=== PATIENT | female | born 1970 | race Caucasian/White ===

== ENCOUNTER 2018-11-06 06:10 | Inpatient (IN) | payer OTHER ==
[2018-11-06] MEDS ORDERED: ONDANSETRON HCL INJ/PF 4 MG/2 ML SDV IV ONE ×2 (06:47→08:54)
[2018-11-06] MEDS ORDERED: PANTOPRAZOLE SODIUM 40 MG VIAL IV PRN (06:47)
[2018-11-06] MEDS ORDERED: PANTOPRAZOLE SODIUM 40 MG VIAL IV ONE (06:47)
[2018-11-06 08:42] LABS: INTERNATIONAL RATION (INR) 0.84
[2018-11-06 08:43] LABS: PARTIAL THROMBOPLASTIN TIME 23.9 SEC (23.5-35.8)
[2018-11-06 08:49] LABS: ABSOLUTE BASOPHILS # (AUTO) 0.1 10^3/uL (0.0-0.2); ABSOLUTE EOSINOPHILS # (AUTO) 0.1 10^3/uL (0.0-0.6); ABSOLUTE MONOCYTES (AUTO) 0.4 10^3/uL (0.1-1.4); ABSOLUTE NEUT (AUTO) 11.2 10^3/uL (1.7-8.2); BASOPHILS % (AUTO) 0.6 % (0-2); EOSINOPHILS % (AUTO) 0.7 % (0-6); HEMATOCRIT 39.2 % (36.0-47.0); HEMOGLOBIN 12.7 g/dL (12.0-15.5); MEAN CORPUSCULAR HEMOGLOBIN 26.9 pg (27.0-33.4); MEAN CORPUSCULAR HGB CONC 32.5 g/dL (32.0-36.0); MEAN CORPUSCULAR VOLUME 83 fl (80-97); MONOCYTES % (AUTO) 3.4 % (3-13); PLATELET COUNT 278 10^3/uL (150-450); RED BLOOD COUNT 4.74 10^6/uL (3.72-5.28); RED CELL DISTRIBUTION WIDTH 14.1 % (11.5-14.0); SEGMENTED NEUTROPHILS % (AUTO) 87.3 % (42-78); TOTAL CELLS COUNTED % (AUTO) 100 %; WHITE BLOOD COUNT 12.8 10^3/uL (4.0-10.5)
[2018-11-06 08:51] LABS: ALANINE AMINOTRANSFERASE 18 U/L (9-52); ALBUMIN 3.6 g/dL (3.5-5.0); ALKALINE PHOSPHATASE 144 U/L (38-126); ANION GAP 10 (5-19); ASPARTATE AMINO TRANSFERASE 16 U/L (14-36); BILIRUBIN,DIRECT 0.3 mg/dL (0.0-0.4); BILIRUBIN,TOTAL 0.5 mg/dL (0.2-1.3); BLOOD UREA NITROGEN 22 mg/dL (7-20); CALCIUM 9.6 mg/dL (8.4-10.2); CARBON DIOXIDE 23 mmol/L (22-30); CHLORIDE 101 mmol/L (98-107); POTASSIUM 4.8 mmol/L (3.6-5.0); SODIUM 133.8 mmol/L (137-145); TOTAL PROTEIN 6.9 g/dL (6.3-8.2)
[2018-11-06 08:58] LABS: ALCOHOL < 10 mg/dL (NONE DETECTED)
[2018-11-06 08:59] LABS: GLUCOSE 549 mg/dL (75-110)
[2018-11-06 11:16] LABS: APPEARANCE,URINE CLOUDY; BILIRUBIN,URINE NEGATIVE (NEGATIVE); COLOR,URINE STRAW; GLUCOSE, URINE >=500 mg/dL (NEGATIVE); KETONES,URINE NEGATIVE (NEGATIVE); LEUKOCYTE ESTERASE,URINE SMALL (NEGATIVE); NITRITE,URINE NEGATIVE (NEGATIVE); PROTEIN,URINE 100 mg/dL (NEGATIVE); URINE SPECIFIC GRAVITY 1.013; UROBILINOGEN,URINE NEGATIVE mg/dL (<2.0)
--- NOTE | 2018-11-06 13:42 | ER Document Report ---
Entered by FADI EL SCRIBE 11/06/18 0644 Acting as scribe for:ISIDRO BARRY DO ED GI/ - General Stated Complaint: POSSIBLE GI BLEED Time Seen by Provider: 11/06/18 06:19 Mode of Arrival: Medic Information source: Patient, Emergency Med Personnel Notes: 48-year-old female who presents to the emergency department today for complaints of vomiting. EMS states that when they arrived on scene the patient was in a bathtub covered in brown/black coffee ground colored emesis. EMS reports that the patient had several episodes of vasovagal syncope while vomiting during the drive to this facility. Patient reports that her vomit was initially a tack maker red color and then transitioned to the current coffee ground appearance. Patient denies EtOH or NSAID or aspirin usage. Patient denies any abdominal pain or bloody/dark stool. EMS reports that the patient is non-compliant with her hype rtension and diabetes medications. - Related Data Allergies/Adverse Reactions: acetaminophen [From Vicodin] Allergy (Verified 11/06/18 06:21) alcohol Allergy (Verified 11/06/18 06:21) azithromycin [From Zithromax] Allergy (Verified 11/06/18 06:21) erythromycin base [From E-Mycin] Allergy (Verified 11/06/18 06:21) eucalyptus Allergy (Verified 11/06/18 06:21) hydrocodone [From Vicodin] Allergy (Verified 11/06/18 06:21) meloxicam Allergy (Verified 11/06/18 06:21) menthol Allergy (Verified 11/06/18 06:21) Penicillins Allergy (Verified 11/06/18 06:21) Sulfa (Sulfonamide Antibiotics) Allergy (Verified 11/06/18 06:21) Past Medical History - General Information source: Patient - paperwork brought with patient - Social History Smoking Status: Current Every Day Smoker Cigarette use (# per day): No - Vape Chew tobacco use (# tins/day): No Frequency of alcohol use: None Drug Abuse: None Lives with: Spouse/Significant other Family History: Reviewed & Not Pertinent - Past Medical History Cardiac Medical History: Reports: Hx Hypertension Neurological Medical History: Reports: Hx Migraine, Other - Parkinson's Endocrine Medical History: Reports: Hx Diabetes Mellitus Type 2 - w/ neuropathy Renal/ Medical History: Reports: Other - Stage II Disease Psychiatric Medical History: Reports: Hx Anxiety, Hx Post Traumatic Stress Disorder Review of Systems - Review of Systems Constitutional: No symptoms reported EENT: No symptoms reported Cardiovascular: No symptoms reported Respiratory: No symptoms reported Gastrointestinal: See HPI, Vomiting, Blood in vomit. denies: Abdominal pain, Black stools, Rectal bleeding Genitourinary: No symptoms reported Female Genitourinary: No symptoms reported Musculoskeletal: No symptoms reported Skin: No symptoms reported Hematologic/Lymphatic: No symptoms reported Neurological/Psychological: No symptoms reported -: Yes All other systems reviewed and negative Physical Exam - Vital signs Vitals: Resp Pulse Ox 19 96 11/06/18 06:16 11/06/18 06:16 - Notes Notes: PHYSICAL EXAM - Pulse oximeter at bedside shows a saturation of 98% with good waveform on room air, no hypoxia per my interpretation. - Bedside traffic monitor specialist interpretation #1: Normal sinus rhythm with a rate of 81 per my interpretation. - Bedside traffic monitor specialist interpretation #2: Heart rate bradys down w/ a 3rd degree heart block during emesis, normalizes after vomiting stops per my interpretation. GENERAL: Initially the patient's eyes are closed and she does not answer questions. There is coffee-ground emesis on her chin, clothes, and in an emesis bag at bedside. After 1-2 minutes the patient becomes alert and is able to answer questions appropriately having to stop intermittently to vomit. Patient appears generally weak. Obese. Hypertensive. HEAD: Normocephalic, atraumatic. EYES: Pupils equal, round, and reactive to light. Extraocular movements intact. ENT: Oral mucosa moist, tongue midline. NECK: Full range of motion. Supple. Trachea midline. LUNGS: Clear to auscultation bilaterally, no wheezes, rales, or rhonchi. No respiratory distress. HEART: Regular rate and rhythm. No murmurs, gallops, or rubs. ABDOMEN: Soft, epigastric tenderness with palpation. Non-distended. Bowel sounds present in all 4 quadrants. No guarding, rigidity, or rebound. EXTREMITIES: Moves all 4 extremities spontaneously. No edema, radial and dorsalis pedis pulses 2/4 bilaterally. No cyanosis. NEUROLOGICAL: Initially the patient's eyes are closed and she does not answer questions. After x1-2 minutes the patient becomes alert and oriented x3. Normal speech. PSYCH: Normal affect, normal mood. SKIN: Warm, dry, normal turgor. Coffee-ground emesis on chin and around mouth. Course - Re-evaluation Re-evalutation: 11/06/18 13:40 CBC shows mild leukocytosis with a white count of 12.8, hemoglobin 12.7, coags normal, sodium slightly low 133.8, BUN and creatinine are both elevated at 22 and 1.61 respectively, I have no old ones to compare this to, glucose elevated at 549, later lowered to 440, lipase normal, urinalysis shows glucose and small leukocyte esterase. Alcohol is less than 10. Patient has been given a Protonix bolus and drip. Patient has not had any coffee-ground emesis for the past 4 to 5 hours. Last witnessed emesis was between 730 and 8 AM this morning. No indication for blood at this time. No evidence of esophageal varices in physical examination or history. I do not know exactly what is causing this GI bleed at this time as she has no history of heavy alcohol use, aspirin use or ibuprofen use. Patient will be admitted to the hospitalist Dr. Johnson 11/06/18 13:41 - Vital Signs Vital signs: Temp Pulse Resp BP Pulse Ox 97.6 F 82 15 169/92 H 97 11/06/18 06:51 11/06/18 06:51 11/06/18 11:00 11/06/18 10:01 11/06/18 11:00 - Laboratory Result Diagrams: 11/06/18 07:50 11/06/18 07:50 Laboratory results interpreted by me: 11/06/18 11/06/18 11/06/18 07:50 07:50 08:00 WBC 12.8 H MCH 26.9 L RDW 14.1 H Seg Neutrophils % 87.3 H Lymphocytes % 8.0 L Absolute Neutrophils 11.2 H Sodium 133.8 L BUN 22 H Creatinine 1.61 H Est GFR ( Amer) 42 L Est GFR (Non-Af Amer) 34 L Glucose 549 H* POC Glucose Alkaline Phosphatase 144 H Urine Protein 100 H Urine Glucose (UA) >=500 H Ur Leukocyte Esterase SMALL H 11/06/18 10:57 WBC MCH RDW Seg Neutrophils % Lymphocytes % Absolute Neutrophils Sodium BUN Creatinine Est GFR ( Amer) Est GFR (Non-Af Amer) Glucose POC Glucose 440 H* Alkaline Phosphatase Urine Protein Urine Glucose (UA) Ur Leukocyte Esterase Discharge - Discharge Clinical Impression: Acute upper GI bleed Hyperglycemia due to type 2 diabetes mellitus Qualifiers: Diabetes mellitus rodent exterminator insulin use: without rodent exterminator use Qualified Code(s): E11.65 - Type 2 diabetes mellitus with hyperglycemia Condition: Fair Disposition: ADMITTED INPATIENT Admitting Provider: Elizabeth (Hospitalist) Unit Admitted: Telemetry I personally performed the services described in the documentation, reviewed and edited the documentation which was dictated to the scribe in my presence, and it accurately records my words and actions.
[2018-11-06] MEDS ORDERED: GLUCAGON,HUMAN RECOMB 1 MG INJ SUBCUT PRN (14:25)
[2018-11-06] MEDS ORDERED: NORMAL SALINE 1000 ML 1,000 ML IV PRN (14:25)
[2018-11-06] MEDS ORDERED: DEXTROSE 40% GEL 15 GM TUBE PO PRN ×4 (14:25→14:32)
[2018-11-06] MEDS ORDERED: DEXTROSE 50%-WATER 25 GM/50 ML DISP.SYRIN IV PRN ×4 (14:25→14:32)
[2018-11-06] MEDS ORDERED: ACETAMINOPHEN 325 MG TABLET PO PRN (14:25)
[2018-11-06] MEDS ORDERED: (PENDING PHARMACY ID) (Hydroxyzine Hcl [Atarax 25 Mg Tablet] 25 MG) PO PRN (14:30)
[2018-11-06] MEDS ORDERED: ALBUTEROL SULFATE HFA (90 MCG/PUFF) 200 PUFF/8.5 GM MDI IH PRN (14:30)
[2018-11-06] MEDS ORDERED: (PENDING PHARMACY ID) (Butalbital/Aspirin/Caffeine [Fiorinal 50-325-40 Mg Capsule] 1 CAP) PO PRN (14:30)
[2018-11-06] MEDS ORDERED: BACITRACIN ZINC OINTMENT 15 GM TP PRN (14:30)
[2018-11-06] MEDS ORDERED: (PENDING PHARMACY ID) (Naloxone Hcl [Narcan] 4 MG) NS PRN (14:30)
[2018-11-06] MEDS ORDERED: CYCLOBENZAPRINE HCL 10 MG TABLET PO PRN (14:30)
[2018-11-06] MEDS ORDERED: GLUCAGON,HUMAN RECOMB 1 MG INJ IM PRN (14:32)
[2018-11-06] MEDS ORDERED: HYDRALAZINE HCL INJ/PF 20 MG/1 ML SDV IV PRN (14:42)
[2018-11-06] MEDS ORDERED: (PENDING PHARMACY ID) (Estradiol [Estrace] 2 MG) PO SCH (14:45)
[2018-11-06] MEDS ORDERED: INSULIN GLARGINE,HUM.REC.ANLOG 1,000 UNIT/10 ML VIAL SUBCUT SCH (14:45)
--- NOTE | 2018-11-06 14:59 | PDOC H&P ---
History of Present Illness Admission Date/PCP: 11/06/18 13:45 Patient complains of: Nausea vomiting's from this morning. History of Present Illness: MIREYA BARRETO is a 48 year old female with history of type 2 diabetes mellitus, obesity, chronic kidney disease, PTSD, depression, OCD, severe depression, neuropathy in both upper and lower extremities brought to the emergency room by EMS with complaints of vomitings associated with coffee-ground emesis. She has multiple syncopal episodes on the way to the emergency room. The work-up in the emergency room revealed hemoglobin of 12.7 WBC of 12.8. By the time of examination nausea vomiting's are subsided. Patient said that usually uses the restroom to 3 times a week and last bowel movement was 2 days ago. denies any diarrhea denies any melena. Patient agreed to stay in the hospital. I called Dr. Alcazar have discussed the plan of care and possible need for endoscopy on nonemergent basis. Past Medical History Cardiac Medical History: Reports: Hypertension Neurological Medical History: Reports: Migraine, Other - Parkinson's Endocrine Medical History: Reports: Diabetes Mellitus Type 2 - w/ neuropathy Renal/ Medical History: Reports: Chronic Kidney Disease, Other - Stage II Di sease Psychiatric Medical History: Reports: Depression, Post Traumatic Stress Disorder Past Surgical History Past Surgical History: Reports: Section, Hysterectomy, Tonsillectomy - & adenoids Social History Lives with: Spouse/Significant other Smoking Status: Current Every Day Smoker Frequency of Alcohol Use: Occasional Hx Recreational Drug Use: No Drugs: None - Advance Directive Resuscitation Status: Full Code Family History Family History: Reviewed & Not Pertinent Parental Family History Reviewed: Yes - Family history of heart disease, diabetes, hypertension. Children Family History Reviewed: Yes Sibling(s) Family History Reviewed.: Yes Medication/Allergy Home Medications: Albuterol Sulfate [Proair Hfa Inhalation Aerosol 8.5 gm Mdi] 2 puff IH ASDIR PRN 11/06/18 Amitriptyline HCl [Elavil 25 mg Tablet] 25 mg PO QHS 11/06/18 Bacitracin Zinc [Bacitracin Oint 15 gm] 1 applic TP BIDP PRN 11/06/18 Butalbital/Aspirin/Caffeine [Fiorinal 50-325-40 mg Capsule] 1 cap PO Q8HP PRN 11/06/18 Citalopram Hydrobromide [Citalopram HBr] 20 mg PO QHS 11/06/18 Clotrimazole/Betamethasone Dip [Lotrisone Cream 15 gm] 1 applic TP ASDIR PRN 11/06/18 Cyclobenzaprine HCl [Flexeril 10 mg Tablet] 10 mg PO Q8HP PRN 11/06/18 Epinephrine [Epipen 2-Charan] 0.3 mg IM ASDIR PRN 11/06/18 Estradiol [Estrace] 2 mg PO DAILY 11/06/18 Famotidine [Pepcid 20 mg Tablet] 20 mg PO BID 11/06/18 Fenofibrate 160 mg PO QHS 11/06/18 Hydroxyzine HCl [Atarax 25 mg Tablet] 25 mg PO Q8HP PRN 11/06/18 Insulin Glargine,Hum.rec.anlog [Basaglar Kwikpen U-100] 60 unit SQ QHS 11/06/18 Insulin Glulisine [Apidra Insulin (Glulisine) 100 unit/mL] 20 unit SUBCUT MEALS 11/06/18 Lisinopril [Prinivil 10 mg Tablet] 20 mg PO DAILY 11/06/18 Loratadine [Claritin 10 mg Tablet] 10 mg PO DAILY 11/06/18 Naloxone HCl [Narcan] 4 mg NS ASDIR PRN 11/06/18 Paroxetine HCl [Paxil] 40 mg PO DAILY 11/06/18 Prochlorperazine Maleate [Compazine 10 mg Tablet] 10 mg PO Q8HP PRN 11/06/18 Topiramate [Topamax] 50 mg PO QHS 11/06/18 Tramadol HCl [Ultram 50 mg Tablet] 50 mg PO Q12HP PRN 11/06/18 Trazodone HCl [Desyrel 50 mg Tablet] 500 mg PO QHS 11/06/18 Allergies/Adverse Reactions: acetaminophen [From Vicodin] Allergy (Verified 11/06/18 06:21) alcohol Allergy (Verified 11/06/18 06:21) azithromycin [From Zithromax] Allergy (Verified 11/06/18 06:21) erythromycin base [From E-Mycin] Allergy (Verified 11/06/18 06:21) eucalyptus Allergy (Verified 11/06/18 06:21) hydrocodone [From Vicodin] Allergy (Verified 11/06/18 06:21) meloxicam Allergy (Verified 11/06/18 06:21) menthol Allergy (Verified 11/06/18 06:21) Penicillins Allergy (Verified 11/06/18 06:21) Sulfa (Sulfonamide Antibiotics) Allergy (Verified 11/06/18 06:21) Review of Systems Constitutional: PRESENT: fatigue, weakness. ABSENT: fever(s), headache(s) Eyes: ABSENT: visual disturbances Ears: ABSENT: hearing changes Nose, Mouth, and Throat: ABSENT: sore throat Cardiovascular: ABSENT: chest pain, dyspnea on exertion, orthropnea, palpitations Respiratory: ABSENT: dyspnea, hemoptysis Gastrointestinal: PRESENT: coffee ground emesis, hematemesis, nausea, vomiting. ABSENT: diarrhea Genitourinary: ABSENT: dysuria, hematuria, nocturia Neurological: PRESENT: dizziness, vertigo Psychiatric: ABSENT: anxiety, depression, homidical ideation, suicidal ideation Physical Exam Vital Signs: Temp Pulse Resp BP Pulse Ox 97.6 F 82 15 169/92 H 97 11/06/18 06:51 11/06/18 06:51 11/06/18 11:00 11/06/18 10:01 11/06/18 11:00 Intake & Output 11/05/18 11/06/18 11/07/18 06:59 06:59 06:59 Weight 88.3 kg General appearance: PRESENT: no acute distress, obese Head exam: PRESENT: atraumatic Eye exam: PRESENT: PERRLA Ear exam: PRESENT: bleeding Mouth exam: PRESENT: moist, tongue midline Neck exam: ABSENT: carotid bruit, JVD, lymphadenopathy, thyromegaly Respiratory exam: PRESENT: clear to auscultation susan. ABSENT: rales, rhonchi, wheezes Cardiovascular exam: PRESENT: bradycardia GI/Abdominal exam: PRESENT: normal bowel sounds, soft. ABSENT: distended, guarding, mass, organolmegaly, rebound, tenderness Extremities exam: PRESENT: full ROM. ABSENT: calf tenderness, clubbing, pedal edema Neurological exam: PRESENT: alert, awake, oriented to person, oriented to place, oriented to time, oriented to situation, CN II-XII grossly intact. ABSENT: motor sensory deficit Psychiatric exam: PRESENT: appropriate affect, normal mood. ABSENT: homicidal ideation, suicidal ideation Results Laboratory Results: 11/06/18 07:50 11/06/18 07:50 11/06/18 11/06/18 11/06/18 07:50 07:50 07:50 WBC 12.8 H RBC 4.74 Hgb 12.7 Hct 39.2 MCV 83 MCH 26.9 L MCHC 32.5 RDW 14.1 H Plt Count 278 Seg Neutrophils % 87.3 H Lymphocytes % 8.0 L Monocytes % 3.4 Eosinophils % 0.7 Basophils % 0.6 Absolute Neutrophils 11.2 H Absolute Lymphocytes 1.0 Absolute Monocytes 0.4 Absolute Eosinophils 0.1 Absolute Basophils 0.1 Sodium 133.8 L Potassium 4.8 Chloride 101 Carbon Dioxide 23 Anion Gap 10 BUN 22 H Creatinine 1.61 H Est GFR ( Amer) 42 L Est GFR (Non-Af Amer) 34 L Glucose 549 H* Calcium 9.6 Total Bilirubin 0.5 AST 16 ALT 18 Alkaline Phosphatase 144 H Total Protein 6.9 Albumin 3.6 Lipase Urine Color Urine Appearance Urine pH Ur Specific Gay Urine Protein Urine Glucose (UA) Urine Ketones Urine Blood Urine Nitrite Ur Leukocyte Esterase Urine WBC (Auto) Urine RBC (Auto) Blood Type O POSITIVE Antibody Screen NEGATIVE 11/06/18 11/06/18 07:50 08:00 WBC RBC Hgb Hct MCV MCH MCHC RDW Plt Count Seg Neutrophils % Lymphocytes % Monocytes % Eosinophils % Basophils % Absolute Neutrophils Absolute Lymphocytes Absolute Monocytes Absolute Eosinophils Absolute Basophils Sodium Potassium Chloride Carbon Dioxide Anion Gap BUN Creatinine Est GFR ( Amer) Est GFR (Non-Af Amer) Glucose Calcium Total Bilirubin AST ALT Alkaline Phosphatase Total Protein Albumin Lipase 166.5 Urine Color STRAW Urine Appearance CLOUDY Urine pH 8.0 Ur Specific Gay 1.013 Urine Protein 100 H Urine Glucose (UA) >=500 H Urine Ketones NEGATIVE Urine Blood NEGATIVE Urine Nitrite NEGATIVE Ur Leukocyte Esterase SMALL H Urine WBC (Auto) 12 Urine RBC (Auto) 3 Blood Type Antibody Screen Assessment and Plan - Diagnosis (1) Acute upper gastrointestinal hemorrhage Is this a current diagnosis for this admission?: Yes Plan: For ,000 [id number] female with multiple medical problems came in with syncopal episodes associated nausea vomiting and coffee colored emesis. Hemogl obin is 12.7 in the ER. Plan to put her in medical floor as inpatient. To keep her n.p.o. except for medications today. Check the CBC again tonight. to Check stool for occult blood. Patient received IV Protonix drip in the ER. to Start him on famotidine 20 mg IV twice a day. Hold the DVT prophylaxis and keep the patient on SCDs. surgical consult with Dr. Alcazar was requested. To repeat the CBC tomorrow morning. If the 50 hemoglobin continued to drop plan to transfuse PRBC. pt is started on normal saline at 50 cc/h. (2) Diabetes Qualifiers: Diabetes mellitus type: type 2 Is this a current diagnosis for this admission?: No Plan: 11/06/2018 patient has history of type 2 diabetes mellitus. Noncompliance of medications at home. On arrival serum glucose is 546. Repeat glucose is 440. Because the patient is n.p.o. to start on low-dose of Lantus 10 units twice a day and start on insulin sliding scale before meals and at bedtime every 6 hours. Hemoglobin A1c was requested. Dietary consult is going to be requested during the hospital stay. (3) HTN (hypertension) Is this a current diagnosis for this admission?: No Plan: 11/06/2018-patient has history of hypertension taking lisinopril at home. To restart lisinopril during the hospital stay and also start IV hydralazine 10 mg every 4 hours as needed to keep the systolic blood pressure less than 150. (4) Obesity (BMI 30.0-34.9) Is this a current diagnosis for this admission?: No Plan: 11/06/2018 patient BMI is around 30. Diet exercise weight loss lifestyle modifications are discussed with the patient. (5) Tobacco abuse Is this a current diagnosis for this admission?: No Plan: 11/06/2018-patient is a chronic smoker smokes close to a pack per day. Looking because it was provided more than 20 minutes. Start on nicotine patch 21 mcg daily. (6) Depression Is this a current diagnosis for this admission?: No Plan: 11/06/2018-patient given the history of depression and any depressive symptoms at the time of admission. Plan to restart her home medications. (7) Hyponatremia Is this a current diagnosis for this admission?: Yes Plan: 11/06/2018-serum sodium is 133.8 today. Blood sugar is 549. Corrected sodium may be close to 140. (8) CKD (chronic kidney disease) Is this a current diagnosis for this admission?: No Plan: 11/06/2018-patient with history of stage II kidney disease. Serum creatinine at the time of admission 1.6. We do not have any previous labs available. Plan to continue to closely follow the kidney function on regular basis. - Time Time Spent with patient: 25-34 minutes Smoking Cessation Education: over 10 minutes Medications reviewed and adjusted accordingly: Yes Anticipated discharge: Home
[2018-11-06] MEDS ORDERED: HYDROXYZINE PAMOATE 25 MG CAPSULE PO PRN (15:08)
[2018-11-06 15:28] LABS: ARTERIAL BLOOD BASE EXCESS -1.3 mmol/L; ARTERIAL BLOOD H2CO3 1.13 mmol/L (1.05-1.35); ARTERIAL BLOOD HCO3 23.1 mmol/L (20-24); ARTERIAL BLOOD O2 SATURATION 95.3 % (94-98); ARTERIAL BLOOD PCO2 37.6 mmHg (35-45); ARTERIAL BLOOD PH 7.41 (7.35-7.45); ARTERIAL BLOOD PO2 75.3 mmHg (80-100); ARTERIAL BLOOD TOTAL CO2 24.2 mmol/L (21-25)
[2018-11-06 15:29] LABS: ABSOLUTE LYMPHOCYTES (AUTO) 0.6 10^3/uL (0.5-4.7); ABSOLUTE MONOCYTES (AUTO) 0.1 10^3/uL (0.1-1.4); ABSOLUTE NEUT (AUTO) 10.5 10^3/uL (1.7-8.2); BASOPHILS % (AUTO) 0.4 % (0-2); HEMATOCRIT 39.7 % (36.0-47.0); LYMPHOCYTES % (AUTO) 5.1 % (13-45); MEAN CORPUSCULAR HEMOGLOBIN 26.9 pg (27.0-33.4); MEAN CORPUSCULAR HGB CONC 32.7 g/dL (32.0-36.0); MEAN CORPUSCULAR VOLUME 82 fl (80-97); MONOCYTES % (AUTO) 1.3 % (3-13); PLATELET COUNT 216 10^3/uL (150-450); RED BLOOD COUNT 4.83 10^6/uL (3.72-5.28); SEGMENTED NEUTROPHILS % (AUTO) 93.2 % (42-78); TOTAL CELLS COUNTED % (AUTO) 100 %; WHITE BLOOD COUNT 11.3 10^3/uL (4.0-10.5)
[2018-11-06 15:36] LABS: ARTERIAL BLOOD FIO2 ROOM AIR
[2018-11-06 15:48] LABS: ALANINE AMINOTRANSFERASE 22 U/L (9-52); ALBUMIN 3.9 g/dL (3.5-5.0); ALKALINE PHOSPHATASE 132 U/L (38-126); ANION GAP 11 (5-19); ASPARTATE AMINO TRANSFERASE 19 U/L (14-36); BILIRUBIN,DIRECT 0.4 mg/dL (0.0-0.4); BILIRUBIN,TOTAL 0.7 mg/dL (0.2-1.3); BLOOD UREA NITROGEN 23 mg/dL (7-20); CALCIUM 9.5 mg/dL (8.4-10.2); CARBON DIOXIDE 24 mmol/L (22-30); CHLORIDE 101 mmol/L (98-107); POTASSIUM 4.6 mmol/L (3.6-5.0); SODIUM 135.5 mmol/L (137-145); TOTAL PROTEIN 7.5 g/dL (6.3-8.2)
[2018-11-06] MEDS: INSULIN LISPRO 100 UNIT/ML 3 ML VIAL SUBCUT SCH ×2 (15:49→17:29)
[2018-11-06 15:55] LABS: CREATINE KINASE MB 1.78 ng/mL (<4.55)
[2018-11-06 16:00] LABS: GLUCOSE 506 mg/dL (75-110)
[2018-11-06] MEDS ORDERED: INSULIN GLARGINE,HUM.REC.ANLOG 1,000 UNIT/10 ML VIAL (PYX) SUBCUT SCH (16:00)
[2018-11-06 16:12] LABS: TROPONIN I < 0.012 ng/mL
[2018-11-06] MEDS: DOCUSATE SODIUM 100 MG CAPSULE PO SCH (17:28)
[2018-11-06] MEDS: ENOXAPARIN SODIUM INJ 40 MG/0.4 ML DISP.SYRIN SUBCUT SCH (17:29)
[2018-11-06] MEDS: LORATADINE 10 MG TABLET PO SCH (17:29)
[2018-11-06] MEDS: LISINOPRIL 10 MG TABLET PO SCH (17:29)
[2018-11-06] MEDS: NICOTINE 14 MG/24 HR PATCH.TD24 TD SCH (17:29)
[2018-11-06] MEDS: FAMOTIDINE INJ/PF 20 MG/2 ML SDV IV SCH (18:03)
[2018-11-06] MEDS: ONDANSETRON HCL INJ/PF 4 MG/2 ML SDV IV PRN (19:41)
--- NOTE | 2018-11-06 21:01 | EKG REPORT ---
SEVERITY:- BORDERLINE ECG - SINUS RHYTHM PROBABLE LEFT ATRIAL ABNORMALITY : Confirmed by: Peg Guevara MD 06-Nov-2018 21:01:05
--- NOTE | 2018-11-06 21:01 | PDOC CONSULTATION ---
Consultation Consult Date: 11/06/18 Consult reason:: Nausea, vomiting, coffee-ground emesis, abdominal pain. History of Present Illness Admission Date/PCP: 11/06/18 13:45 History of Present Illness: MIREYA BARRETO is a 48 year old female seen in consultation at the request of the hospitalist service. The patient reports that she woke up from sleep having excruciating abdominal pain. She has never felt pain like this before. The patient began vomiting. Initially, the vomitus was yellow/green in color. It resembled her previous meal. The patient continued vomiting, at which point it began to look like coffee grounds. The patient reports sharp epigastric abdominal pain that was 6 out of 10. The patient became very dizzy after vomiting and could not get up out of the floor. Patient had to call for assist ance, to transport her to the hospital. The patient denies melena, hematochezia, or diarrhea. Her last bowel movement was 2 days ago, soft, and brown. The patient denies chest pain, shortness of breath, fevers, chills, headache, blurry vision. She does report dizziness, orthostasis, fatigue, and malaise. Nothing makes her symptoms better or worse. The patient denies taking NSAIDs, steroids, using caffeine, drinking soda pop, or drinking alcohol. She does report using nicotine via a vape pen. Past Medical History Cardiac Medical History: Reports: Hypertension Neurological Medical History: Reports: Migraine, Other - Parkinson's Endocrine Medical History: Reports: Diabetes Mellitus Type 2 - w/ neuropathy Renal/ Medical History: Reports: Chronic Kidney Disease, Other - Stage II Disease Psychiatric Medical History: Reports: Depression, Post Traumatic Stress Disorder Past Surgical History Past Surgical History: Reports: Section, Hysterectomy, Tonsillectomy - & adenoids Social History Lives with: Spouse/Significant other Smoking Status: Current Every Day Smoker Number of Years Smokin Last Time Smoked: 07/2016 Frequency of Alcohol Use: Occasional Hx Recreational Drug Use: No Drugs: None Hx Prescription Drug Abuse: No - Advance Directive Resuscitation Status: Full Code Family History Family History: Reviewed & Not Pertinent Parental Family History Reviewed: Yes Children Family History Reviewed: Yes Sibling(s) Family History Reviewed.: Yes Medication/Allergy Home Medications: Albuterol Sulfate [Proair Hfa Inhalation Aerosol 8.5 gm Mdi] 2 puff IH ASDIR PRN 11/06/18 Amitriptyline HCl [Elavil 25 mg Tablet] 25 mg PO QHS 11/06/18 Bacitracin Zinc [Bacitracin Oint 15 gm] 1 applic TP BIDP PRN 11/06/18 Butalb/Acetaminophen/Caffeine [Fioricet (50-325-40 mg) Tablet] 1 tab PO Q8HP PRN 11/06/18 Citalopram Hydrobromide [Citalopram HBr] 20 mg PO QHS 11/06/18 Clotrimazole/Betamethasone Dip [Lotrisone Cream 15 gm] 1 applic TP ASDIR PRN 11/06/18 Cyclobenzaprine HCl [Flexeril 10 mg Tablet] 10 mg PO Q8HP PRN 11/06/18 Epinephrine [Epipen 2-Charan] 0.3 mg IM ASDIR PRN 11/06/18 Estradiol [Estrace] 2 mg PO DAILY 11/06/18 Famotidine [Pepcid 20 mg Tablet] 20 mg PO BID 11/06/18 Fenofibrate 160 mg PO QHS 11/06/18 Hydroxyzine HCl [Atarax 25 mg Tablet] 25 mg PO Q8HP PRN 11/06/18 Insulin Glargine,Hum.rec.anlog [Basaglar Kwikpen U-100] 60 unit SQ QHS 11/06/18 Insulin Glulisine [Apidra Insulin (Glulisine) 100 unit/mL] 20 unit SUBCUT MEALS 11/06/18 Lisinopril [Prinivil 10 mg Tablet] 20 mg PO DAILY 11/06/18 Loratadine [Claritin 10 mg Tablet] 10 mg PO DAILY 11/06/18 Naloxone HCl [Narcan] 4 mg NS ASDIR PRN 11/06/18 Paroxetine HCl [Paxil] 40 mg PO DAILY 11/06/18 Prochlorperazine Maleate [Compazine 10 mg Tablet] 10 mg PO Q8HP PRN 11/06/18 Topiramate [Topamax] 50 mg PO QHS 11/06/18 Tramadol HCl [Ultram 50 mg Tablet] 50 mg PO Q12HP PRN 11/06/18 Trazodone HCl [Desyrel 50 mg Tablet] 500 mg PO QHS 11/06/18 Allergies/Adverse Reactions: acetaminophen [From Vicodin] Allergy (Verified 11/06/18 06:21) alcohol Allergy (Verified 11/06/18 06:21) azithromycin [From Zithromax] Allergy (Verified 11/06/18 06:21) erythromycin base [From E-Mycin] Allergy (Verified 11/06/18 06:21) eucalyptus Allergy (Verified 11/06/18 06:21) hydrocodone [From Vicodin] Allergy (Verified 11/06/18 06:21) meloxicam Allergy (Verified 11/06/18 06:21) menthol Allergy (Verified 11/06/18 06:21) Penicillins Allergy (Verified 11/06/18 06:21) Sulfa (Sulfonamide Antibiotics) Allergy (Verified 11/06/18 06:21) Review of Systems Constitutional: PRESENT: fatigue. ABSENT: chills, fever(s) Eyes: ABSENT: visual disturbances Ears: ABSENT: hearing changes Nose, Mouth, and Throat: ABSENT: sore throat Cardiovascular: ABSENT: chest pain Respiratory: ABSENT: cough, dyspnea Gastrointestinal: PRESENT: abdominal pain, bloating, nausea, vomiting, other - Coffee-ground emesis. ABSENT: hematochezia, melena Genitourinary: ABSENT: dysuria Musculoskeletal: ABSENT: back pain Integumentary: ABSENT: pruritus, rash Neurological: PRESENT: dizziness, frequent falls, syncope, weakness Psychiatric: PRESENT: anxiety, depression Endocrine: ABSENT: cold intolerance, heat intolerance Hematologic/Lymphatic: ABSENT: easy bleeding, easy bruising Physical Exam Vital Signs: Temp Pulse Resp BP Pulse Ox 98.8 F 92 17 142/65 H 97 11/06/18 14:39 11/06/18 14:39 11/06/18 14:39 11/06/18 14:39 11/06/18 14:39 Intake & Output 11/05/18 11/06/18 11/07/18 06:59 06:59 06:59 Weight 88.3 kg 84.85 kg General appearance: PRESENT: no acute distress, cooperative Head exam: PRESENT: atraumatic, normocephalic Eye exam: PRESENT: EOMI, PERRLA. ABSENT: scleral icterus Mouth exam: PRESENT: moist, neck supple Neck exam: ABSENT: meningismus, tenderness, thyromegaly, tracheal deviation Respiratory exam: PRESENT: clear to auscultation susan, unlabored. ABSENT: chest wall tenderness, tachypnea, wheezes Cardiovascular exam: PRESENT: RRR Pulses: PRESENT: normal radial pulses Vascular exam: PRESENT: normal capillary refill. ABSENT: pallor GI/Abdominal exam: PRESENT: soft. ABSENT: distended, firm, guarding, tenderness Rectal exam: PRESENT: deferred Extremities exam: ABSENT: clubbing Musculoskeletal exam: ABSENT: deformity Neurological exam: PRESENT: alert, awake, oriented to person, oriented to place, oriented to time, oriented to situation Psychiatric exam: ABSENT: agitated, anxious, depressed Focused psych exam: ABSENT: delusional Skin exam: ABSENT: cyanosis, erythema, jaundice Results Laboratory Results: 11/06/18 15:00 11/06/18 15:00 11/06/18 11/06/18 11/06/18 07:50 07:50 07:50 WBC 12.8 H RBC 4.74 Hgb 12.7 Hct 39.2 MCV 83 MCH 26.9 L MCHC 32.5 RDW 14.1 H Plt Count 278 Seg Neutrophils % 87.3 H Lymphocytes % 8.0 L Monocytes % 3.4 Eosinophils % 0.7 Basophils % 0.6 Absolute Neutrophils 11.2 H Absolute Lymphocytes 1.0 Absolute Monocytes 0.4 Absolute Eosinophils 0.1 Absolute Basophils 0.1 Carbonic Acid HCO3/H2CO3 Ratio ABG pH ABG pCO2 ABG pO2 ABG HCO3 ABG O2 Saturation ABG Base Excess FiO2 Sodium 133.8 L Potassium 4.8 Chloride 101 Carbon Dioxide 23 Anion Gap 10 BUN 22 H Creatinine 1.61 H Est GFR ( Amer) 42 L Est GFR (Non-Af Amer) 34 L Glucose 549 H* Calcium 9.6 Total Bilirubin 0.5 AST 16 ALT 18 Alkaline Phosphatase 144 H Total Protein 6.9 Albumin 3.6 Lipase Urine Color Urine Appearance Urine pH Ur Specific [place] Urine Protein Urine Glucose (UA) Urine Ketones Urine Blood Urine Nitrite Ur Leukocyte Esterase Urine WBC (Auto) Urine RBC (Auto) Blood Type O POSITIVE Antibody Screen NEGATIVE 11/06/18 11/06/18 11/06/18 07:50 08:00 15:00 WBC 11.3 H RBC 4.83 Hgb 13.0 Hct 39.7 MCV 82 MCH 26.9 L MCHC 32.7 RDW 14.0 Plt Count 216 Seg Neutrophils % 93.2 H Lymphocytes % 5.1 L Monocytes % 1.3 L Eosinophils % 0.0 Basophils % 0.4 Absolute Neutrophils 10.5 H Absolute Lymphocytes 0.6 Absolute Monocytes 0.1 Absolute Eosinophils 0.0 Absolute Basophils 0.0 Carbonic Acid HCO3/H2CO3 Ratio ABG pH ABG pCO2 ABG pO2 ABG HCO3 ABG O2 Saturation ABG Base Excess FiO2 Sodium Potassium Chloride Carbon Dioxide Anion Gap BUN Creatinine Est GFR ( Amer) Est GFR (Non-Af Amer) Glucose Calcium Total Bilirubin AST ALT Alkaline Phosphatase Total Protein Albumin Lipase 166.5 Urine Color STRAW Urine Appearance CLOUDY Urine pH 8.0 Ur Specific [place] 1.013 Urine Protein 100 H Urine Glucose (UA) >=500 H Urine Ketones NEGATIVE Urine Blood NEGATIVE Urine Nitrite NEGATIVE Ur Leukocyte Esterase SMALL H Urine WBC (Auto) 12 Urine RBC (Auto) 3 Blood Type Antibody Screen 11/06/18 11/06/18 15:00 15:15 WBC RBC Hgb Hct MCV MCH MCHC RDW Plt Count Seg Neutrophils % Lymphocytes % Monocytes % Eosinophils % Basophils % Absolute Neutrophils Absolute Lymphocytes Absolute Monocytes Absolute Eosinophils Absolute Basophils Carbonic Acid 1.13 HCO3/H2CO3 Ratio 20:1 ABG pH 7.41 ABG pCO2 37.6 ABG pO2 75.3 L ABG HCO3 23.1 ABG O2 Saturation 95.3 ABG Base Excess -1.3 FiO2 ROOM AIR Sodium 135.5 L Potassium 4.6 Chloride 101 Carbon Dioxide 24 Anion Gap 11 BUN 23 H Creatinine 1.70 H Est GFR ( Amer) 39 L Est GFR (Non-Af Amer) 32 L Glucose 506 H* Calcium 9.5 Total Bilirubin 0.7 AST 19 ALT 22 Alkaline Phosphatase 132 H Total Protein 7.5 Albumin 3.9 Lipase Urine Color Urine Appearance Urine pH Ur Specific [place] Urine Protein Urine Glucose (UA) Urine Ketones Urine Blood Urine Nitrite Ur Leukocyte Esterase Urine WBC (Auto) Urine RBC (Auto) Blood Type Antibody Screen 11/06/18 15:00 CK-MB (CK-2) 1.78 Troponin I < 0.012 Assessment & Plan - Diagnosis (1) Nausea and vomiting Qualifiers: Vomiting type: bilious vomiting Qualified Code(s): R11.14 - Bilious vomiting Is this a current diagnosis for this admission?: Yes (2) Coffee ground emesis Is this a current diagnosis for this admission?: Yes (3) Hyperglycemia Is this a current diagnosis for this admission?: Yes - Plan Summary Plan Summary: This is a 48-year-old female with reports of abdominal pain, nausea, vomiting, syncope, dizziness, and coffee-ground emesis. Surgery has been asked to evaluate the patient. Currently her blood sugars are in the 3-500 range. She is being treated for this with insulin. The patient reports seeing coffee- ground emesis. This, coupled with her epigastric abdominal pain may be indicative of peptic ulcer disease. The patient may benefit from endoscopy. I would prefer that her blood glucose levels are slightly better controlled prior to the procedure. Plan for upper endoscopy once blood sugars are improved. Please note that the patient is not currently having héctor hematemesis. Her hemoglobin is stable. Her vital signs are also stable. The patient also has an elevated alkaline phosphatase. I will recheck this in the morning. I will also check a right upper quadrant ultrasound to continue investigating her nausea and vomiting.
[2018-11-06 21:39] LABS: CREATINE KINASE MB 1.29 ng/mL (<4.55)
[2018-11-06 21:45] LABS: TROPONIN I < 0.012 ng/mL
[2018-11-06] MEDS ORDERED: TRAZODONE HCL 50 MG TABLET PO SCH (22:00)
[2018-11-06] MEDS ORDERED: (PENDING PHARMACY ID) (Fenofibrate [Fenofibrate] 160 MG) PO SCH (22:00)
[2018-11-06] MEDS ORDERED: (PENDING PHARMACY ID) (Citalopram Hydrobromide [Citalopram Hbr] 20 MG) PO SCH (22:00)
--- NOTE | 2018-11-07 01:05 | RADIOLOGY REPORT (SQ) ---
EXAM DESCRIPTION: CT ABDOMEN PELVIS WITHOUT IV CONTRAST COMPLETED DATE/TME: 11/06/2018 00:00 CLINICAL HISTORY: 48 years, Female, abd pain COMPARISON: None. TECHNIQUE: 318 Images stored on PACS. All CT scanners at this facility use dose modulation, iterative reconstruction, and/or weight based dosing when appropriate to reduce radiation dose to as low as reasonably achievable (ALARA). [facility]: Dose Right [facility]: CareDose [facility]: Dose Right [facility]: Teradose 4D [facility]: Luxim LIMITATIONS: None. FINDINGS: Limited evaluation of the lung bases is unremarkable. Osseous structures are grossly intact. The liver, spleen, adrenal glands, pancreas, are grossly unremarkable. The gallbladder is present. Nonobstructing 6 mm left renal calculus there are 2 other punctate nonobstructing left renal calculi inferiorly measuring approximately 3 mm. No obstructing calculus or hydronephrosis. Moderate atheromatous change. No gross evidence for bowel obstruction. No free air or free fluid. Appendix not well seen. No pericecal inflammation. Abundant stool in colon IMPRESSION: Nonobstructing left renal calculi. Abundant stool in the colon. TECHNICAL DOCUMENTATION: Quality ID # 436: Final reports with documentation of one or more dose reduction techniques (e.g., Automated exposure control, adjustment of the mA and/or kV according to patient size, use of iterative reconstruction technique) copyright 2010 [employer]- All Rights Reserved
[2018-11-07] MEDS: SUCRALFATE 1 GM TABLET PO SCH ×5 (01:11→21:10)
[2018-11-07] MEDS: FENOFIBRATE NANOCRYSTALLIZED 145 MG TABLET PO SCH ×2 (01:16→21:11)
[2018-11-07] MEDS: TOPIRAMATE 25 MG TABLET PO SCH ×2 (01:17→21:11)
[2018-11-07] MEDS: CITALOPRAM HYDROBROMIDE 20 MG TABLET PO SCH ×2 (01:17→21:10)
[2018-11-07] MEDS: AMITRIPTYLINE HCL 25 MG TABLET PO SCH ×2 (01:17→21:10)
[2018-11-07] MEDS: INSULIN LISPRO 100 UNIT/ML 3 ML VIAL SUBCUT SCH ×5 (01:32→23:34)
[2018-11-07] MEDS: ONDANSETRON HCL INJ/PF 4 MG/2 ML SDV IV PRN (01:36)
[2018-11-07 04:18] LABS: ABSOLUTE BASOPHILS # (AUTO) 0.2 10^3/uL (0.0-0.2); ABSOLUTE MONOCYTES (AUTO) 0.6 10^3/uL (0.1-1.4); BASOPHILS % (AUTO) 1.3 % (0-2); EOSINOPHILS % (AUTO) 0.2 % (0-6); HEMATOCRIT 35.2 % (36.0-47.0); HEMOGLOBIN 11.7 g/dL (12.0-15.5); LYMPHOCYTES % (AUTO) 15.6 % (13-45); MEAN CORPUSCULAR HGB CONC 33.3 g/dL (32.0-36.0); MEAN CORPUSCULAR VOLUME 81 fl (80-97); MONOCYTES % (AUTO) 4.6 % (3-13); PLATELET COUNT 321 10^3/uL (150-450); RED BLOOD COUNT 4.34 10^6/uL (3.72-5.28); RED CELL DISTRIBUTION WIDTH 13.8 % (11.5-14.0); SEGMENTED NEUTROPHILS % (AUTO) 78.3 % (42-78); TOTAL CELLS COUNTED % (AUTO) 100 %; WHITE BLOOD COUNT 12.8 10^3/uL (4.0-10.5)
[2018-11-07 04:39] LABS: ALANINE AMINOTRANSFERASE 14 U/L (9-52); ALKALINE PHOSPHATASE 86 U/L (38-126); AMYLASE 90 U/L (30-110); ANION GAP 8 (5-19); ASPARTATE AMINO TRANSFERASE 16 U/L (14-36); BILIRUBIN,DIRECT 0.3 mg/dL (0.0-0.4); BILIRUBIN,TOTAL 0.5 mg/dL (0.2-1.3); BLOOD UREA NITROGEN 24 mg/dL (7-20); CALCIUM 9.2 mg/dL (8.4-10.2); CARBON DIOXIDE 25 mmol/L (22-30); CHLORIDE 106 mmol/L (98-107); GLUCOSE 242 mg/dL (75-110); LIPASE 428.9 U/L (23-300); POTASSIUM 4.2 mmol/L (3.6-5.0); SODIUM 139.2 mmol/L (137-145); TRIGLYCERIDES 368 mg/dL (<150)
[2018-11-07 04:45] LABS: CHOLESTEROL 322.23 mg/dL (0-200)
[2018-11-07 04:50] LABS: DIRECT LDL 185 mg/dL (<100)
[2018-11-07 04:51] LABS: CREATINE KINASE MB 0.74 ng/mL (<4.55); VLDL CHOLESTEROL 73.6 mg/dL (10-31)
[2018-11-07 04:53] LABS: TROPONIN I < 0.012 ng/mL
[2018-11-07 05:33] LABS: URINE AMPHETAMINES SCREEN NEGATIVE; URINE BARBITURATES SCREEN NEGATIVE; URINE BENZODIAZEPINES SCREEN NEGATIVE; URINE COCAINE SCREEN NEGATIVE; URINE MARIJUANA (THC) SCREEN NEGATIVE; URINE METHADONE SCREEN NEGATIVE; URINE PHENCYCLIDINE SCREEN NEGATIVE
[2018-11-07] MEDS: FAMOTIDINE INJ/PF 20 MG/2 ML SDV IV SCH ×2 (05:37→18:57)
--- NOTE | 2018-11-07 08:13 | RADIOLOGY REPORT (SQ) ---
EXAM DESCRIPTION: U/S ABDOMEN LIMITED W/O DOP COMPLETED DATE/TIME: 11/07/2018 1:10 am REASON FOR STUDY: nausea, vomiting, abdominal pain COMPARISON: None. TECHNIQUE: Dynamic and static grayscale images acquired of the abdomen and recorded on PACS. Additio nal selected color Doppler and spectral images recorded. LIMITATIONS: None. FINDINGS: PANCREAS: Not visualized LIVER: No masses. Echotexture normal. LIVER VASCULATURE: Normal directional flow of the main portal vein and hepatic veins. GALLBLADDER: No stones. Normal wall thickness. No pericholecystic fluid. ULTRASOUND-DETECTED SOSA'S SIGN: Negative. INTRAHEPATIC DUCTS AND COMMON DUCT: CBD and intrahepatic ducts normal caliber. No filling defects. INFERIOR VENA CAVA: Normal flow. AORTA: No aneurysm. RIGHT KIDNEY: Normal size. Normal echogenicity. No solid or suspicious masses. No hydronephrosis. No calcifications. PERITONEAL AND RIGHT PLEURAL SPACE: No ascites or effusions. OTHER: No other significant findings. IMPRESSION: NORMAL RIGHT UPPER QUADRANT ULTRASOUND. TECHNICAL DOCUMENTATION: JOB ID: [id number] [employer]- All Rights Reserved Reading location - IP/workstation name: [email or web address]
[2018-11-07] MEDS: ENOXAPARIN SODIUM INJ 40 MG/0.4 ML DISP.SYRIN SUBCUT SCH (09:41)
[2018-11-07] MEDS: LISINOPRIL 10 MG TABLET PO SCH (09:44)
[2018-11-07] MEDS: PAROXETINE HCL 20 MG TABLET PO SCH (09:45)
[2018-11-07] MEDS: DOCUSATE SODIUM 100 MG CAPSULE PO SCH ×2 (09:45→18:57)
[2018-11-07] MEDS: NICOTINE 14 MG/24 HR PATCH.TD24 TD SCH (09:45)
[2018-11-07] MEDS: LORATADINE 10 MG TABLET PO SCH (09:45)
--- NOTE | 2018-11-07 10:14 | PDOC PROGRESS REPORT ---
Subjective Progress Note for:: 11/07/18 Subjective:: 48-year-old female with nausea and vomiting. She reports hematemesis and coffee-ground emesis. The patient is feeling somewhat better today. She denies chest pain, fevers, chills, shortness of breath, dizziness, blurry vision. She still has occasional nausea, but has not had any vomiting. She denies melena, hematochezia, diarrhea. Reason For Visit: HEMETEMESIS Physical Exam Vital Signs: Temp Pulse Resp BP Pulse Ox 98.4 F 80 12 122/55 L 97 11/07/18 07:42 11/07/18 07:42 11/07/18 07:42 11/07/18 07:42 11/07/18 07:42 Intake & Output 11/06/18 11/07/18 11/08/18 06:59 06:59 06:59 Output Total 600 Balance -600 Weight 88.3 kg 84.2 kg General appearance: PRESENT: no acute distress, cooperative Eye exam: PRESENT: EOMI, PERRLA. ABSENT: scleral icterus Mouth exam: PRESENT: moist, neck supple Neck exam: ABSENT: meningismus, tenderness, thyromegaly, tracheal deviation Respiratory exam: PRESENT: clear to auscultation susan, unlabored. ABSENT: chest wall tenderness, tachypnea Cardiovascular exam: PRESENT: RRR Pulses: PRESENT: normal radial pulses GI/Abdominal exam: PRESENT: soft. ABSENT: distended, tenderness Extremities exam: ABSENT: clubbing Musculoskeletal exam: ABSENT: deformity Neurological exam: PRESENT: alert, awake, oriented to person, oriented to place, oriented to time, oriented to situation Psychiatric exam: ABSENT: agitated, anxious, depressed Focused psych exam: ABSENT: delusional Skin exam: ABSENT: cyanosis, erythema, jaundice Results Laboratory Results: 11/07/18 03:38 11/07/18 03:38 11/06/18 11/06/18 11/06/18 08:00 15:00 15:00 WBC 11.3 H RBC 4.83 Hgb 13.0 Hct 39.7 MCV 82 MCH 26.9 L MCHC 32.7 RDW 14.0 Plt Count 216 Seg Neutrophils % 93.2 H Lymphocytes % 5.1 L Monocytes % 1.3 L Eosinophils % 0.0 Basophils % 0.4 Absolute Neutrophils 10.5 H Absolute Lymphocytes 0.6 Absolute Monocytes 0.1 Absolute Eosinophils 0.0 Absolute Basophils 0.0 Carbonic Acid HCO3/H2CO3 Ratio ABG pH ABG pCO2 ABG pO2 ABG HCO3 ABG O2 Saturation ABG Base Excess FiO2 Sodium 135.5 L Potassium 4.6 Chloride 101 Carbon Dioxide 24 Anion Gap 11 BUN 23 H Creatinine 1.70 H Est GFR ( Amer) 39 L Est GFR (Non-Af Amer) 32 L Glucose 506 H* Calcium 9.5 Magnesium Total Bilirubin 0.7 AST 19 ALT 22 Alkaline Phosphatase 132 H Total Protein 7.5 Albumin 3.9 Triglycerides Cholesterol LDL Cholesterol Direct VLDL Cholesterol HDL Cholesterol Amylase Lipase TSH Urine Color STRAW Urine Appearance CLOUDY Urine pH 8.0 Ur Specific [place] 1.013 Urine Protein 100 H Urine Glucose (UA) >=500 H Urine Ketones NEGATIVE Urine Blood NEGATIVE Urine Nitrite NEGATIVE Ur Leukocyte Esterase SMALL H Urine WBC (Auto) 12 Urine RBC (Auto) 3 11/06/18 11/07/18 11/07/18 15:15 03:38 03:38 WBC 12.8 H RBC 4.34 Hgb 11.7 L Hct 35.2 L MCV 81 MCH 27.0 MCHC 33.3 RDW 13.8 Plt Count 321 Seg Neutrophils % 78.3 H Lymphocytes % 15.6 Monocytes % 4.6 Eosinophils % 0.2 Basophils % 1.3 Absolute Neutrophils 10.0 H Absolute Lymphocytes 2.0 Absolute Monocytes 0.6 Absolute Eosinophils 0.0 Absolute Basophils 0.2 Carbonic Acid 1.13 HCO3/H2CO3 Ratio 20:1 ABG pH 7.41 ABG pCO2 37.6 ABG pO2 75.3 L ABG HCO3 23.1 ABG O2 Saturation 95.3 ABG Base Excess -1.3 FiO2 ROOM AIR Sodium 139.2 Potassium 4.2 Chloride 106 Carbon Dioxide 25 Anion Gap 8 BUN 24 H Creatinine 2.14 H Est GFR ( Amer) 30 L Est GFR (Non-Af Amer) 25 L Glucose 242 H Calcium 9.2 Magnesium 2.0 Total Bilirubin 0.5 AST 16 ALT 14 Alkaline Phosphatase 86 Total Protein 6.0 L Albumin 3.0 L Triglycerides 368 H Cholesterol 322.23 H LDL Cholesterol Direct 185 H VLDL Cholesterol 73.6 H HDL Cholesterol 37 L Amylase 90 Lipase 428.9 H TSH Urine Color Urine Appearance Urine pH Ur Specific [place] Urine Protein Urine Glucose (UA) Urine Ketones Urine Blood Urine Nitrite Ur Leukocyte Esterase Urine WBC (Auto) Urine RBC (Auto) 11/07/18 03:38 WBC RBC Hgb Hct MCV MCH MCHC RDW Plt Count Seg Neutrophils % Lymphocytes % Monocytes % Eosinophils % Basophils % Absolute Neutrophils Absolute Lymphocytes Absolute Monocytes Absolute Eosinophils Absolute Basophils Carbonic Acid HCO3/H2CO3 Ratio ABG pH ABG pCO2 ABG pO2 ABG HCO3 ABG O2 Saturation ABG Base Excess FiO2 Sodium Potassium Chloride Carbon Dioxide Anion Gap BUN Creatinine Est GFR ( Amer) Est GFR (Non-Af Amer) Glucose Calcium Magnesium Total Bilirubin AST ALT Alkaline Phosphatase Total Protein Albumin Triglycerides Cholesterol LDL Cholesterol Direct VLDL Cholesterol HDL Cholesterol Amylase Lipase TSH 7.76 H Urine Color Urine Appearance Urine pH Ur Specific [place] Urine Protein Urine Glucose (UA) Urine Ketones Urine Blood Urine Nitrite Ur Leukocyte Esterase Urine WBC (Auto) Urine RBC (Auto) 11/06/18 11/06/18 11/07/18 15:00 20:50 03:38 CK-MB (CK-2) 1.78 1.29 0.74 Troponin I < 0.012 < 0.012 < 0.012 NT-Pro-B Natriuret Pep 11/07/18 03:38 CK-MB (CK-2) Troponin I NT-Pro-B Natriuret Pep 1490 H Impressions: Abdomen Ultrasound 11/06/18 00:00 IMPRESSION: NORMAL RIGHT UPPER QUADRANT ULTRASOUND. Abdomen/Pelvis CT 11/06/18 00:00 IMPRESSION: Nonobstructing left renal calculi. Abundant stool in the colon. TECHNICAL DOCUMENTATION: Quality ID # [id number]: Final reports with documentation of one or more dose reduction techniques (e.g., Automated exposure control, adjustment of the mA and/or kV according to patient size, use of iterative reconstruction technique) copyright 2011 [employer]- All Rights Reserved Assessment & Plan - Diagnosis (1) Nausea and vomiting Qualifiers: Vomiting type: bilious vomiting Qualified Code(s): R11.14 - Bilious vomiting Is this a current diagnosis for this admission?: Yes (2) Coffee ground emesis Is this a current diagnosis for this admission?: Yes (3) Hyperglycemia Is this a current diagnosis for this admission?: Yes - Plan Summary Plan Summary: Patient with hematochezia and coffee-ground emesis. Her right upper quadrant ultrasound is normal. Her blood sugars are more controlled today. Her lipase is slightly elevated, but her amylase is normal. I believe it is safe to perform EGD today, in light of her clinical stabilization. Risks/benefits discussed, informed consent obtained, and all questions answered.
[2018-11-07] MEDS ORDERED: NORMAL SALINE 1000 ML 1,000 ML IV PRN (10:36)
--- NOTE | 2018-11-07 10:37 | PDOC PROGRESS REPORT ---
Subjective Progress Note for:: 11/07/18 Subjective:: 48-year-old female with multiple medical problems admitted for hematemesis. Still having nausea no more vomiting's. She did not have any bowel movement yet. Blood sugars are better controlled. Patient is going for EGD today. Reason For Visit: HEMETEMESIS Physical Exam Vital Signs: Temp Pulse Resp BP Pulse Ox 98.4 F 80 12 122/55 L 97 11/07/18 07:42 11/07/18 07:42 11/07/18 07:42 11/07/18 07:42 11/07/18 07:42 Intake & Output 11/06/18 11/07/18 11/08/18 06:59 06:59 06:59 Output Total 600 Balance -600 Weight 88.3 kg 84.2 kg General appearance: PRESENT: no acute distress, obese Head exam: PRESENT: atraumatic Eye exam: PRESENT: PERRLA Mouth exam: PRESENT: moist, tongue midline Respiratory exam: PRESENT: clear to auscultation susan. ABSENT: rales, rhonchi, wheezes Cardiovascular exam: PRESENT: RRR. ABSENT: diastolic murmur, rubs, systolic murmur GI/Abdominal exam: PRESENT: normal bowel sounds, soft. ABSENT: distended, guarding, mass, organolmegaly, rebound, tenderness Extremities exam: PRESENT: full ROM. ABSENT: calf tenderness, clubbing, pedal edema Neurological exam: PRESENT: alert, awake, oriented to person, oriented to place, oriented to time, oriented to situation, CN II-XII grossly intact. ABSENT: motor sensory deficit Psychiatric exam: PRESENT: appropriate affect, normal mood. ABSENT: homicidal ideation, suicidal ideation Results Laboratory Results: 11/07/18 03:38 11/07/18 03:38 11/06/18 11/06/18 11/06/18 08:00 15:00 15:00 WBC 11.3 H RBC 4.83 Hgb 13.0 Hct 39.7 MCV 82 MCH 26.9 L MCHC 32.7 RDW 14.0 Plt Count 216 Seg Neutrophils % 93.2 H Lymphocytes % 5.1 L Monocytes % 1.3 L Eosinophils % 0.0 Basophils % 0.4 Absolute Neutrophils 10.5 H Absolute Lymphocytes 0.6 Absolute Monocytes 0.1 Absolute Eosinophils 0.0 Absolute Basophils 0.0 Carbonic Acid HCO3/H2CO3 Ratio ABG pH ABG pCO2 ABG pO2 ABG HCO3 ABG O2 Saturation ABG Base Excess FiO2 Sodium 135.5 L Potassium 4.6 Chloride 101 Carbon Dioxide 24 Anion Gap 11 BUN 23 H Creatinine 1.70 H Est GFR ( Amer) 39 L Est GFR (Non-Af Amer) 32 L Glucose 506 H* Calcium 9.5 Magnesium Total Bilirubin 0.7 AST 19 ALT 22 Alkaline Phosphatase 132 H Total Protein 7.5 Albumin 3.9 Triglycerides Cholesterol LDL Cholesterol Direct VLDL Cholesterol HDL Cholesterol Amylase Lipase TSH Urine Color STRAW Urine Appearance CLOUDY Urine pH 8.0 Ur Specific Boss 1.013 Urine Protein 100 H Urine Glucose (UA) >=500 H Urine Ketones NEGATIVE Urine Blood NEGATIVE Urine Nitrite NEGATIVE Ur Leukocyte Esterase SMALL H Urine WBC (Auto) 12 Urine RBC (Auto) 3 11/06/18 11/07/18 11/07/18 15:15 03:38 03:38 WBC 12.8 H RBC 4.34 Hgb 11.7 L Hct 35.2 L MCV 81 MCH 27.0 MCHC 33.3 RDW 13.8 Plt Count 321 Seg Neutrophils % 78.3 H Lymphocytes % 15.6 Monocytes % 4.6 Eosinophils % 0.2 Basophils % 1.3 Absolute Neutrophils 10.0 H Absolute Lymphocytes 2.0 Absolute Monocytes 0.6 Absolute Eosinophils 0.0 Absolute Basophils 0.2 Carbonic Acid 1.13 HCO3/H2CO3 Ratio 20:1 ABG pH 7.41 ABG pCO2 37.6 ABG pO2 75.3 L ABG HCO3 23.1 ABG O2 Saturation 95.3 ABG Base Excess -1.3 FiO2 ROOM AIR Sodium 139.2 Potassium 4.2 Chloride 106 Carbon Dioxide 25 Anion Gap 8 BUN 24 H Creatinine 2.14 H Est GFR ( Amer) 30 L Est GFR (Non-Af Amer) 25 L Glucose 242 H Calcium 9.2 Magnesium 2.0 Total Bilirubin 0.5 AST 16 ALT 14 Alkaline Phosphatase 86 Total Protein 6.0 L Albumin 3.0 L Triglycerides 368 H Cholesterol 322.23 H LDL Cholesterol Direct 185 H VLDL Cholesterol 73.6 H HDL Cholesterol 37 L Amylase 90 Lipase 428.9 H TSH Urine Color Urine Appearance Urine pH Ur Specific Boss Urine Protein Urine Glucose (UA) Urine Ketones Urine Blood Urine Nitrite Ur Leukocyte Esterase Urine WBC (Auto) Urine RBC (Auto) 11/07/18 03:38 WBC RBC Hgb Hct MCV MCH MCHC RDW Plt Count Seg Neutrophils % Lymphocytes % Monocytes % Eosinophils % Basophils % Absolute Neutrophils Absolute Lymphocytes Absolute Monocytes Absolute Eosinophils Absolute Basophils Carbonic Acid HCO3/H2CO3 Ratio ABG pH ABG pCO2 ABG pO2 ABG HCO3 ABG O2 Saturation ABG Base Excess FiO2 Sodium Potassium Chloride Carbon Dioxide Anion Gap BUN Creatinine Est GFR ( Amer) Est GFR (Non-Af Amer) Glucose Calcium Magnesium Total Bilirubin AST ALT Alkaline Phosphatase Total Protein Albumin Triglycerides Cholesterol LDL Cholesterol Direct VLDL Cholesterol HDL Cholesterol Amylase Lipase TSH 7.76 H Urine Color Urine Appearance Urine pH Ur Specific Boss Urine Protein Urine Glucose (UA) Urine Ketones Urine Blood Urine Nitrite Ur Leukocyte Esterase Urine WBC (Auto) Urine RBC (Auto) 11/06/18 11/06/18 11/07/18 15:00 20:50 03:38 CK-MB (CK-2) 1.78 1.29 0.74 Troponin I < 0.012 < 0.012 < 0.012 NT-Pro-B Natriuret Pep 11/07/18 03:38 CK-MB (CK-2) Troponin I NT-Pro-B Natriuret Pep 1490 H Impressions: Abdomen Ultrasound 11/06/18 00:00 IMPRESSION: NORMAL RIGHT UPPER QUADRANT ULTRASOUND. Abdomen/Pelvis CT 11/06/18 00:00 IMPRESSION: Nonobstructing left renal calculi. Abundant stool in the colon. TECHNICAL DOCUMENTATION: Quality ID # 436: Final reports with documentation of one or more dose reduction techniques (e.g., Automated exposure control, adjustment of the mA and/or kV according to patient size, use of iterative reconstruction technique) copyright 2011 [employer]- All Rights Reserved Assessment and Plan - Diagnosis (1) Acute upper gastrointestinal hemorrhage Is this a current diagnosis for this admission?: Yes Plan: 11/06/[id number]-syxd-old female with multiple medical problems came in with syn copal episodes associated nausea vomiting and coffee colored emesis. Hemoglobin is 12.7 in the ER. Plan to put her in medical floor as inpatient. To keep her n.p.o. except for medications today. Check the CBC again tonight. to Check stool for occult blood. Patient received IV Protonix drip in the ER. to Start him on famotidine 20 mg IV twice a day. Hold the DVT prophylaxis and keep the patient on SCDs. surgical consult with Dr. Alcazar was requested. To repeat the CBC tomorrow morning. If the 50 hemoglobin continued to drop plan to transfuse PRBC. pt is started on normal saline at 50 cc/h. 11/07/[id number]-xhct-old female interval medical problems including diabetes mellitus hypertension obesity noncompliant with medications admitted for hematemesis. EMS found her covered with coffee ground emesis. She also has a syncopal episodes and vomitings on the way to the hospital. Hemoglobin is stable at 11.7 blood pressure better controlled patient is going for EGD today. Most likely upper GI bleed may be secondary to severe gastritis. (2) Diabetes Qualifiers: Diabetes mellitus type: type 2 Is this a current diagnosis for this admission?: No Plan: 11/06/2018 patient has history of type 2 diabetes mellitus. Noncompliance of medications at home. On arrival serum glucose is 546. Repeat glucose is 440. Because the patient is n.p.o. to start on low-dose of Lantus 10 units twice a day and start on insulin sliding scale before meals and at bedtime every 6 hours. Hemoglobin A1c was requested. Dietary consult is going to be requested during the hospital stay. 11/07/2018-patient's hemoglobin is 12.5. Patient is noncompliant with diabetic medications at home. She is n.p.o. on IV fluids normal saline blood sugar this body just 202. Presently on Lantus 10 units twice a day and insulin sliding scale every 6 hours. Plan is to continue the present management at this moment. (3) HTN (hypertension) Is this a current diagnosis for this admission?: No Plan: 11/06/2018-patient has history of hypertension taking lisinopril at home. To restart lisinopril during the hospital stay and also start IV hydralazine 10 mg every 4 hours as needed to keep the systolic blood pressure less than 150. 11/07/2018-patient came in with history of hypertension she takes lisinopril at home. Which was resumed during the hospital stay. (4) Obesity (BMI 30.0-34.9) Is this a current diagnosis for this admission?: No (5) Tobacco abuse Is this a current diagnosis for this admission?: No (6) Depression Is this a current diagnosis for this admission?: No (7) Hyponatremia Is this a current diagnosis for this admission?: Yes Plan: 11/06/2018-serum sodium is 133.8 today. Blood sugar is 549. Corrected sodium may be close to 140. 11/07/2018-patient serum sodium is 139. Hyponatremia is resolved. (8) CKD (chronic kidney disease) Is this a current diagnosis for this admission?: No Plan: 11/06/2018-patient with history of stage II kidney disease. Serum creatinine at the time of admission 1.6. We do not have any previous labs available. Plan to continue to closely follow the kidney function on regular basis. 11/07/2018-patient has history of CKD. Creatinine is 2.14 today. CKD most likely secondary to diabetes mellitus. Presently on normal saline at 75 cc/h we will plan to increase the fluids from today. - Time Time Spent with patient: 15-24 minutes Medications reviewed and adjusted accordingly: Yes Anticipated discharge: Home
[2018-11-07] MEDS ORDERED: INSULIN GLARGINE,HUM.REC.ANLOG 1,000 UNIT/10 ML VIAL SUBCUT SCH (11:30)
[2018-11-07] MEDS: BUTALB/ACETAMINOPHEN/CAFFEINE 1 TAB EACH PO PRN ×2 (12:49→21:10)
[2018-11-07] MEDS ORDERED: PROPOFOL INJ 200 MG/20 ML VIAL IV ONE (14:06)
[2018-11-07] MEDS ORDERED: LIDOCAINE 2% INJ-PF (100 MG/5 ML) SYRINGE ONE (14:06)
[2018-11-07] MEDS ORDERED: FENTANYL CITRATE INJ/PF 100 MCG/2 ML AMPUL IV PRN ×3 (14:50)
[2018-11-07] MEDS ORDERED: DIPHENHYDRAMINE HCL 50 MG/ML VIAL IV PRN (14:50)
[2018-11-07] MEDS ORDERED: MEPERIDINE HCL/PF INJ 25 MG/1 ML DISP.SYRIN IV PRN (14:50)
[2018-11-07] MEDS ORDERED: OXYCODONE-ACETAMINOPHEN 5-325 MG TABLET PO PRN ×2 (14:50)
[2018-11-07] MEDS ORDERED: ONDANSETRON HCL INJ/PF 4 MG/2 ML SDV IV PRN (14:50)
[2018-11-07] MEDS ORDERED: PROMETHAZINE HCL INJ 25 MG/1 ML VIAL IV PRN ×2 (14:50)
--- NOTE | 2018-11-07 15:38 | Operative Report ---
Nonrecallable Operative Report DATE OF SURGERY: 11/07/18 PREOPERATIVE DIAGNOSIS: Hematemesis POSTOPERATIVE DIAGNOSIS: Gastritis OPERATION: EGD with biopsy SURGEON: MICHAEL STOUT ANESTHESIA: LMAC TISSUE REMOVED OR ALTERED: Antral biopsy COMPLICATIONS: None apparent ESTIMATED BLOOD LOSS: Minimal PROCEDURE: Drains/implants: None. Procedure in detail: After informed consent was obtained, the patient was brought into the operating room and laid in the left lateral decubitus position. The endoscope was passed down the oropharynx, down the esophagus, and into the stomach. The stomach was insufflated with air. Immediately there was noted to be gastritis throughout the stomach. There were petechiae, linear striations, and prominent gastric folds. The gastritis was worst in the antrum. The scope was pushed through the pylorus into the first and second portions of the duodenum, which appeared normal. The scope was pulled back into the antrum, where a biopsy was taken to rule out H. pylori infection. Retroflexion maneuver was performed noting no large hiatal hernias. The scope was pulled up into the distal esophagus. No significant reflux esophagitis was identified. The scope was then pulled up the remainder of the esophagus. The remainder of the esophagus was smooth in contour without masses, lesions, or other abnormal allergies. It was then removed from the patient's oropharynx, and the procedure was. All sponge, instrument, and needle counts were correct x2. Condition: Stable.
--- NOTE | 2018-11-07 15:40 | Progress Note ---
Provider Note Provider Note: Patient is status post EGD showing gastritis. I will add Carafate to the patient's medication regimen. The patient's LFTs are normal today, as is her gallbladder ultrasound. At this time the patient does not warrant any further surgical intervention. I will sign off. Please renotify with any questions or concerns.
[2018-11-07] MEDS ORDERED: NICOTINE 14 MG/24 HR PATCH.TD24 TD SCH (18:00)
[2018-11-07] MEDS: INSULIN GLARGINE,HUM.REC.ANLOG 1,000 UNIT/10 ML VIAL SUBCUT SCH (18:57)
[2018-11-08 05:47] LABS: ABSOLUTE BASOPHILS # (AUTO) 0.1 10^3/uL (0.0-0.2); ABSOLUTE EOSINOPHILS # (AUTO) 0.2 10^3/uL (0.0-0.6); ABSOLUTE LYMPHOCYTES (AUTO) 2.3 10^3/uL (0.5-4.7); ABSOLUTE MONOCYTES (AUTO) 0.5 10^3/uL (0.1-1.4); ABSOLUTE NEUT (AUTO) 6.2 10^3/uL (1.7-8.2); BASOPHILS % (AUTO) 1.1 % (0-2); EOSINOPHILS % (AUTO) 1.8 % (0-6); LYMPHOCYTES % (AUTO) 24.6 % (13-45); MEAN CORPUSCULAR HEMOGLOBIN 27.4 pg (27.0-33.4); MEAN CORPUSCULAR HGB CONC 33.3 g/dL (32.0-36.0); MEAN CORPUSCULAR VOLUME 82 fl (80-97); MONOCYTES % (AUTO) 5.4 % (3-13); PLATELET COUNT 281 10^3/uL (150-450); RED BLOOD COUNT 4.01 10^6/uL (3.72-5.28); RED CELL DISTRIBUTION WIDTH 14.2 % (11.5-14.0); SEGMENTED NEUTROPHILS % (AUTO) 67.1 % (42-78); TOTAL CELLS COUNTED % (AUTO) 100 %; WHITE BLOOD COUNT 9.2 10^3/uL (4.0-10.5)
[2018-11-08] MEDS: INSULIN LISPRO 100 UNIT/ML 3 ML VIAL SUBCUT SCH (06:04)
[2018-11-08] MEDS: FAMOTIDINE INJ/PF 20 MG/2 ML SDV IV SCH (06:05)
[2018-11-08 06:07] LABS: ALANINE AMINOTRANSFERASE 18 U/L (9-52); ALBUMIN 2.7 g/dL (3.5-5.0); ALKALINE PHOSPHATASE 71 U/L (38-126); AMYLASE 67 U/L (30-110); ANION GAP 6 (5-19); ASPARTATE AMINO TRANSFERASE 16 U/L (14-36); BILIRUBIN,DIRECT 0.2 mg/dL (0.0-0.4); BILIRUBIN,TOTAL 0.3 mg/dL (0.2-1.3); BLOOD UREA NITROGEN 21 mg/dL (7-20); CALCIUM 8.7 mg/dL (8.4-10.2); CARBON DIOXIDE 23 mmol/L (22-30); CHLORIDE 110 mmol/L (98-107); GLUCOSE 150 mg/dL (75-110); LIPASE 187.3 U/L (23-300); POTASSIUM 4.3 mmol/L (3.6-5.0); SODIUM 139.3 mmol/L (137-145); TOTAL PROTEIN 5.4 g/dL (6.3-8.2)
[2018-11-08] MEDS: LORATADINE 10 MG TABLET PO SCH (09:22)
[2018-11-08] MEDS: ENOXAPARIN SODIUM INJ 40 MG/0.4 ML DISP.SYRIN SUBCUT SCH (09:22)
[2018-11-08] MEDS: LISINOPRIL 10 MG TABLET PO SCH (09:22)
[2018-11-08] MEDS: SUCRALFATE 1 GM TABLET PO SCH (09:22)
[2018-11-08] MEDS: DOCUSATE SODIUM 100 MG CAPSULE PO SCH (09:22)
[2018-11-08] MEDS: PAROXETINE HCL 20 MG TABLET PO SCH (09:23)
[2018-11-08] MEDS: ONDANSETRON HCL INJ/PF 4 MG/2 ML SDV IV PRN (09:36)
[2018-11-08] MEDS: INSULIN GLARGINE,HUM.REC.ANLOG 1,000 UNIT/10 ML VIAL SUBCUT SCH (10:01)
[2018-11-08] MEDS ORDERED: INSULIN LISPRO 100 UNIT/ML 3 ML VIAL SUBCUT SCH (11:00)
[2018-11-08 11:29] VITALS: BP 142/73
--- NOTE | 2018-11-08 14:04 | PDOC DISCHARGE SUMMARY ---
General - Admit/Disc Date/PCP Admission Date/Primary Care Provider: 11/06/18 13:45 Discharge Date: 11/08/18 - Discharge Diagnosis (1) Acute upper gastrointestinal hemorrhage Is this a current diagnosis for this admission?: Yes Summary: 11/06/[id number]-pqrv-old female with multiple medical problems came in with syncopal episodes associated nausea vomiting and coffee colored emesis. Hemoglobin is 12.7 in the ER. Plan to put her in medical floor as inpatient. To keep her n.p.o. except for medications today. Check the CBC again tonight. to Check stool for occult blood. Patient received IV Protonix drip in the ER. to Start him on famotidine 20 mg IV twice a day. Hold the DVT prophylaxis and keep the patient on SCDs. surgical consult with Dr. Alcazar was requested. To repeat the CBC tomorrow morning. If the 50 hemoglobin continued to drop plan to transfuse PRBC. pt is started on normal saline at 50 cc/h. 11/07/[id number]-nrmz-old female interval medical problems including diabetes mellitus hypertension obesity noncompliant with medications admitted for hematemesis. EMS found her covered with coffee ground emesis. She also has a syncopal episodes and vomitings on the way to the hospital. Hemoglobin is stable at 11.7 blood pressure better controlled patient is going for EGD today. Most likely upper GI bleed may be secondary to severe gastritis. 22 08/21/2016-patient admitted with coffee colored emesis. Surgical consult was done status post EGD found to have a gastritis. As per the surgical recommendations she was started on Carafate. Hemoglobin is stable. Patient is advised to follow-up with primary care physician in 3 to 5 days. Patient agreed and going home today. (2) Diabetes Is this a current diagnosis for this admission?: No Summary: 11/06/2018 patient has history of type 2 diabetes mellitus. Noncompliance of medications at home. On arrival serum glucose is 546. Repeat glucose is 440. Because the patient is n.p.o. to start on low-dose of Lantus 10 units twice a day and start on insulin sliding scale before meals and at bedtime every 6 hours. Hemoglobin A1c was requested. Dietary consult is going to be requested during the hospital stay. 11/07/2018-patient's hemoglobin is 12.5. Patient is noncompliant with diabetic medications at home. She is n.p.o. on IV fluids normal saline blood sugar this body just 202. Presently on Lantus 10 units twice a day and insulin sliding scale every 6 hours. Plan is to continue the present management at this moment. 11/08/2018-patient's blood sugar when she came in is around 450. The globin A1c is 12.5. Here she is on Lantus 10 units twice a day and insulin sliding scale before meals and at bedtime. Blood sugars this morning is 237. Dietary counseling was done during the hospital stay. Patient says she has enough insulin at home and advised her to continue be compliant with medications (3) HTN (hypertension) Is this a current diagnosis for this admission?: No Summary: 11/06/2018-patient has history of hypertension taking lisinopril at home. To restart lisinopril during the hospital stay and also start IV hydralazine 10 mg every 4 hours as needed to keep the systolic blood pressure less than 150. 11/07/2018-patient came in with history of hypertension she takes lisinopril at home. Which was resumed during the hospital stay. 11/08/2018-patient has history of hypertension taking lisinopril at home which was resumed here in the hospital. patient is advised to continue the medication at home. (4) Obesity (BMI 30.0-34.9) Is this a current diagnosis for this admission?: No Summary: For 2018-patient's BMI is 29 dietary consult was provided during the hospital stay. (5) Tobacco abuse Is this a current diagnosis for this admission?: No (6) Depression Is this a current diagnosis for this admission?: No (7) Hyponatremia Is this a current diagnosis for this admission?: Yes Summary: 11/06/2018-serum sodium is 133.8 today. Blood sugar is 549. Corrected sodium may be close to 140. 11/07/2018-patient serum sodium is 139. Hyponatremia is resolved. 11/08/2018-patient serum sodium is 139 ,hyponatremia most likely secondary to uncontrolled diabetes mellitus is currently resolved. (8) CKD (chronic kidney disease) Is this a current diagnosis for this admission?: No - Additional Information Resuscitation Status: Full Code Discharge Diet: Diabetic Discharge Activity: Activity As Tolerated, Balance Activity w/Rest, Slowly Increase Activity Prescriptions: Ondansetron HCl [Zofran 4 mg Tablet] 1 - 2 tab PO Q4H PRN #10 tablet PRN Reason: Sucralfate [Carafate 1 gm Tablet] 1 gm PO ACHS #60 tablet Home Medications: Albuterol Sulfate [Proair HFA Inhalation Aerosol 8.5 gm MDI] 2 puff IH ASDIR PRN 11/06/18 Amitriptyline HCl [Elavil 25 mg Tablet] 25 mg PO QHS 11/06/18 Bacitracin Zinc [Bacitracin Oint 15 gm] 1 applic TP BIDP PRN 11/06/18 Butalb/Acetaminophen/Caffeine [Fioricet (50-325-40 mg) Tablet] 1 tab PO Q8HP PRN 11/06/18 Citalopram Hydrobromide [Citalopram HBr] 20 mg PO QHS 11/06/18 Clotrimazole/Betamethasone Dip [Lotrisone Cream 15 gm] 1 applic TP ASDIR PRN 11/06/18 Cyclobenzaprine HCl [Flexeril 10 mg Tablet] 10 mg PO Q8HP PRN 11/06/18 Epinephrine [Epipen 2-Charan] 0.3 mg IM ASDIR PRN 11/06/18 Estradiol [Estrace] 2 mg PO DAILY 11/06/18 Famotidine [Pepcid 20 mg Tablet] 20 mg PO BID 11/06/18 Fenofibrate 160 mg PO QHS 11/06/18 Hydroxyzine HCl [Atarax 25 mg Tablet] 25 mg PO Q8HP PRN 11/06/18 Insulin Glargine,Hum.rec.anlog [Basaglar Kwikpen U-100] 60 unit SQ QHS 11/06/18 Insulin Glulisine [Apidra Insulin (Glulisine) 100 unit/mL] 20 unit SUBCUT MEALS 11/06/18 Lisinopril [Prinivil 10 mg Tablet] 20 mg PO DAILY 11/06/18 Loratadine [Claritin 10 mg Tablet] 10 mg PO DAILY 11/06/18 Naloxone HCl [Narcan] 4 mg NS ASDIR PRN 11/06/18 Paroxetine HCl [Paxil] 40 mg PO DAILY 11/06/18 Prochlorperazine Maleate [Compazine 10 mg Tablet] 10 mg PO Q8HP PRN 11/06/18 Topiramate [Topamax] 50 mg PO QHS 11/06/18 Tramadol HCl [Ultram 50 mg Tablet] 50 mg PO Q12HP PRN 11/06/18 Trazodone HCl [Desyrel 50 mg Tablet] 500 mg PO QHS 11/06/18 Insulin Glargine,Hum.rec.anlog [Lantus Insulin 100 Unit/1 ml 10 ml] 15 unit SUBCUT BID unit 11/08/18 Insulin Lispro [Humalog Insulin (Lispro) 100 unit/mL] 0 - 12 unit SUBCUT ACHS unit 11/08/18 Loratadine [Claritin 10 mg Tablet] 10 mg PO DAILY tablet 11/08/18 Ondansetron HCl [Zofran 4 mg Tablet] 1 - 2 tab PO Q4H PRN #10 tablet 11/08/18 Sucralfate [Carafate 1 gm Tablet] 1 gm PO ACHS #60 tablet 11/08/18 History of Present Illness History of Present Illness: MIREYA BARRETO is a 48 year old female with history of type 2 diabetes mellitus, obesity, chronic kidney disease, PTSD, depression, OCD, severe depression, neuropathy in both upper and lower extremities brought to the emergency room by EMS with complaints of vomitings associated with coffee-ground emesis. She has multiple syncopal episodes on the way to the emergency room. The work-up in the emergency room revealed hemoglobin of 12.7 WBC of 12.8. By the time of examination nausea vomiting's are subsided. Patient said that usually uses the restroom to 3 times a week and last bowel movement was 2 days ago. denies any diarrhea denies any melena. Patient agreed to stay in the hospital. I called Dr. Alcazar have discussed the plan of care and possible need for endoscopy on nonemergent basis. Hospital Course Hospital Course: Patient is admitted with coffee colored emesis. No nausea no vomitings during the hospital stay. Hemoglobin is stable. Status post EGD found to have a gastritis. She was started on Carafate 1 g 4 times daily and a prescription was given for the patient to go home. Physical Exam Vital Signs: Temp Pulse Resp BP Pulse Ox 97.9 F 85 16 142/73 H 97 11/08/18 12:42 11/08/18 12:42 11/08/18 12:42 11/08/18 12:42 11/08/18 12:42 Intake & Output 11/07/18 11/08/18 11/09/18 06:59 06:59 06:59 Intake Total 2600 Output Total 600 800 Balance -600 1800 Weight 84.2 kg 84.4 kg General appearance: PRESENT: no acute distress, obese Head exam: PRESENT: atraumatic Eye exam: PRESENT: conjunctiva pink, EOMI, PERRLA. ABSENT: scleral icterus Mouth exam: PRESENT: moist, tongue midline Neck exam: ABSENT: carotid bruit, JVD, lymphadenopathy, thyromegaly Respiratory exam: PRESENT: clear to auscultation susan. ABSENT: rales, rhonchi, wheezes Cardiovascular exam: PRESENT: RRR. ABSENT: diastolic murmur, rubs, systolic murmur GI/Abdominal exam: PRESENT: normal bowel sounds, soft. ABSENT: distended, guarding, mass, organolmegaly, rebound, tenderness Rectal exam: PRESENT: deferred Extremities exam: PRESENT: full ROM. ABSENT: calf tenderness, clubbing, pedal edema Neurological exam: PRESENT: alert, awake, oriented to person, oriented to place, oriented to time, oriented to situation, CN II-XII grossly intact. ABSENT: motor sensory deficit Psychiatric exam: PRESENT: appropriate affect, normal mood. ABSENT: homicidal ideation, suicidal ideation Results Laboratory Results: 11/08/18 04:57 11/08/18 04:57 11/08/18 11/08/18 04:57 04:57 WBC 9.2 RBC 4.01 Hgb 11.0 L Hct 33.0 L MCV 82 MCH 27.4 MCHC 33.3 RDW 14.2 H Plt Count 281 Seg Neutrophils % 67.1 Lymphocytes % 24.6 Monocytes % 5.4 Eosinophils % 1.8 Basophils % 1.1 Absolute Neutrophils 6.2 Absolute Lymphocytes 2.3 Absolute Monocytes 0.5 Absolute Eosinophils 0.2 Absolute Basophils 0.1 Sodium 139.3 Potassium 4.3 Chloride 110 H Carbon Dioxide 23 Anion Gap 6 BUN 21 H Creatinine 1.96 H Est GFR ( Amer) 33 L Est GFR (Non-Af Amer) 27 L Glucose 150 H Calcium 8.7 Magnesium 1.9 Total Bilirubin 0.3 AST 16 ALT 18 Alkaline Phosphatase 71 Total Protein 5.4 L Albumin 2.7 L Amylase 67 Lipase 187.3 11/06/18 11/06/18 11/07/18 15:00 20:50 03:38 CK-MB (CK-2) 1.78 1.29 0.74 Troponin I < 0.012 < 0.012 < 0.012 NT-Pro-B Natriuret Pep 11/07/18 03:38 CK-MB (CK-2) Troponin I NT-Pro-B Natriuret Pep 1490 H Impressions: Abdomen Ultrasound 11/06/18 00:00 IMPRESSION: NORMAL RIGHT UPPER QUADRANT ULTRASOUND. Abdomen/Pelvis CT 11/06/18 00:00 IMPRESSION: Nonobstructing left renal calculi. Abundant stool in the colon. TECHNICAL DOCUMENTATION: Quality ID # [id number]: Final reports with documentation of one or more dose reduction techniques (e.g., Automated exposure control, adjustment of the mA and/or kV according to patient size, use of iterative reconstruction technique) copyright 2011 [employer]- All Rights Reserved Qualifiers - * PATIENT BEING DISCHARGED WITH ANY OF THE FOLLOWING DIAGNOSIS: No VTE patient discharged on overlapping Therapy?: No Plan Discharge Plan: Patient is going home today. Time Spent: Less than 30 Minutes
== END 2018-11-08 13:40 | disposition home or self-care (01) | DRG 378 ==
LOC: EDBD → ER 06:10 → EH 13:45 → 4W 14:34
PROVIDERS: ADMIT Internal Medicine; ATTEND Internal Medicine
PROC: 0DB78ZX Excision of Stomach, Pylorus, Via Natural or Artificial Opening Endoscopic, Diagnostic (ICD-10-PCS; principal; 2018-11-07 13:30)
DX: K92.0 Hematemesis (principal); E87.1 Hypo-osmolality and hyponatremia; K29.70 Gastritis, unspecified, without bleeding; E11.22 Type 2 diabetes mellitus with diabetic chronic kidney disease; I12.9 Hypertensive chronic kidney disease with stage 1 through stage 4 chronic kidney disease, or unspecified chronic kidney disease; N18.2 Chronic kidney disease, stage 2 (mild); E66.9 Obesity, unspecified; F43.10 Post-traumatic stress disorder, unspecified; F32.9 Major depressive disorder, single episode, unspecified; E11.40 Type 2 diabetes mellitus with diabetic neuropathy, unspecified; F42.9 Obsessive-compulsive disorder, unspecified; G20 Parkinson's disease; R55 Syncope and collapse; Z90.710 Acquired absence of both cervix and uterus; F17.200 Nicotine dependence, unspecified, uncomplicated; Z79.4 Long term (current) use of insulin; Z79.899 Other long term (current) drug therapy; Z88.6 Allergy status to analgesic agent; Z88.1 Allergy status to other antibiotic agents; Z88.0 Allergy status to penicillin; Z88.2 Allergy status to sulfonamides; Z91.14 Patient's other noncompliance with medication regimen
CPT/HCPCS: 36415; 36600; 43239; 731; 74176; 76705; 80053; 80061; 80307; 81001; 82150; 82553; 82803; 82962; 83036; 83690; 83735; 83880; 84443; 84484; 85025; 85610; 85730; 86850; 86900; 86901; 88305; 93005; 93010; 96365; 96366; 96375; 96376; 99285; J1650; J1815; J2001; J2405; J2704; J3490; J7030; S0028; S0164

== ENCOUNTER 2018-11-11 13:19 | Emergency (ER) | payer OTHER ==
[2018-11-11] MEDS ORDERED: PROMETHAZINE HCL INJ 25 MG/1 ML VIAL IV ONE (14:15)
[2018-11-11] MEDS ORDERED: RINGERS SOLUTION,LACTATED 1,000 ML IV ONE (14:16)
[2018-11-11] MEDS ORDERED: FAMOTIDINE INJ/PF 20 MG/2 ML SDV IV ONE (14:17)
[2018-11-11] MEDS ORDERED: SUCRALFATE 1 GM TABLET PO ONE (14:17)
--- NOTE | 2018-11-11 14:19 | ER Document Report ---
ED Medical Screen (RME) - General Chief Complaint: Abdominal Pain Stated Complaint: ABDOMINAL PAIN Time Seen by Provider: 11/11/18 13:47 Notes: Patient is a 48-year-old female presents to the emergency department for continued vomiting. Patient states she was discharged from this facility on Thursday after episodes of vomiting blood. States she had a EGD and was placed on Carafate and Phenergan. States she has been taking medications as prescribed, last took Phenergan at 10 AM. States she has had continued vomiting which is why she presents to the emergeny room. Patient states she has attempted to call the surgery center twice and was told to come to the emergency room. ABDOMEN: Soft, non-tender. Non-distended. Bowel sounds present in all 4 quadrants. SKIN: Warm, dry, normal turgor, pallor. No rashes or lesions noted. I have greeted and performed a rapid initial assessment of this patient. A comprehensive ED assessment and evaluation of the patient, analysis of test results and completion of the medical decision making process will be conducted by additional ED providers. This medical record was dictated with voice recognizing software. There may be grammatical, syntax errors that are unintended. TRAVEL OUTSIDE OF THE [place] IN LAST 30 DAYS: No - Related Data Allergies/Adverse Reactions: alcohol Allergy (Verified 11/11/18 13:23) azithromycin [From Zithromax] Allergy (Verified 11/11/18 13:23) erythromycin base [From E-Mycin] Allergy (Verified 11/11/18 13:23) eucalyptus Allergy (Verified 11/11/18 13:23) hydrocodone [From Vicodin] Allergy (Verified 11/11/18 13:23) meloxicam Allergy (Verified 11/11/18 13:23) menthol Allergy (Verified 11/11/18 13:23) Penicillins Allergy (Verified 11/11/18 13:23) Sulfa (Sulfonamide Antibiotics) Allergy (Verified 11/11/18 13:23) Past Medical History - Social History Frequency of alcohol use: None Drug Abuse: None - Past Medical History Cardiac Medical History: Reports: Hx Hypertension Neurological Medical History: Reports: Hx Migraine Endocrine Medical History: Reports: Hx Diabetes Mellitus Type 2 - w/ neuropathy Renal/ Medical History: Denies: Hx Peritoneal Dialysis Psychiatric Medical History: Reports: Hx Anxiety, Hx Depression, Hx Post Traumatic Stress Disorder Past Surgical History: Reports: Hx Section, Hx Hysterectomy, Hx Neurologic Surgery - patch to repair CSF leak, Hx Oral Surgery, Hx Tonsillectomy - & adenoids Physical Exam - Vital signs Vitals: Temp Pulse Resp BP Pulse Ox 97.5 F 105 H 16 134/82 H 99 11/11/18 13:25 11/11/18 13:25 11/11/18 13:25 11/11/18 13:25 11/11/18 13:25 Course - Vital Signs Vital signs: Temp Pulse Resp BP Pulse Ox 97.5 F 105 H 16 134/82 H 99 11/11/18 13:25 11/11/18 13:25 11/11/18 13:25 11/11/18 13:25 11/11/18 13:25
--- NOTE | 2018-11-11 18:36 | ER Document Report ---
ED General - General Chief Complaint: Abdominal Pain Stated Complaint: ABDOMINAL PAIN Time Seen by Provider: 11/11/18 13:47 Notes: 48-year-old female recently discharged from this hospital on Monday 11/06 for an upper GI bleed presents to the emergency department for continued vomiting. States she had a EGD and was placed on Carafate and Phenergan. States she has been taking medications as prescribed, last took Phenergan at 10 AM. States she has had continued vomiting which is why she presents to the emergeny room. Patient states she has attempted to call the surgery center twice and was told to come to the emergency room. She denies any fevers, chills, headache, coffee- ground emesis or hematemesis, shortness of breath or chest pain, complains of left upper and lower quadrant abdominal pain, complains of constipation last bowel movement 1 week ago, no urinary symptoms. TRAVEL OUTSIDE OF THE [place] IN LAST 30 DAYS: No - Related Data Allergies/Adverse Reactions: alcohol Allergy (Verified 11/11/18 13:23) azithromycin [From Zithromax] Allergy (Verified 11/11/18 13:23) erythromycin base [From E-Mycin] Allergy (Verified 11/11/18 13:23) eucalyptus Allergy (Verified 11/11/18 13:23) hydrocodone [From Vicodin] Allergy (Verified 11/11/18 13:23) meloxicam Allergy (Verified 11/11/18 13:23) menthol Allergy (Verified 11/11/18 13:23) Penicillins Allergy (Verified 11/11/18 13:23) Sulfa (Sulfonamide Antibiotics) Allergy (Verified 11/11/18 13:23) Past Medical History - Social History Smoking Status: Never Smoker Frequency of alcohol use: None Drug Abuse: None Family History: Reviewed & Not Pertinent Patient has suicidal ideation: No Patient has homicidal ideation: No - Past Medical History Cardiac Medical History: Reports: Hx Hypertension Neurological Medical History: Reports: Hx Migraine Endocrine Medical History: Reports: Hx Diabetes Mellitus Type 2 - w/ neuropathy Renal/ Medical History: Denies: Hx Peritoneal Dialysis Psychiatric Medical History: Reports: Hx Anxiety, Hx Depression, Hx Post Traumatic Stress Disorder Past Surgical History: Reports: Hx Section, Hx Hysterectomy, Hx Neurologic Surgery - patch to repair CSF leak, Hx Oral Surgery, Hx Tonsillectomy - & adenoids Review of Systems - Review of Systems Constitutional: See HPI EENT: No symptoms reported Cardiovascular: See HPI Respiratory: See HPI Gastrointestinal: See HPI Genitourinary: See HPI Female Genitourinary: No symptoms reported Musculoskeletal: No symptoms reported Skin: No symptoms reported Hematologic/Lymphatic: No symptoms reported Neurological/Psychological: No symptoms reported Physical Exam - Vital signs Vitals: Temp Pulse Resp BP Pulse Ox 97.5 F 105 H 16 134/82 H 99 11/11/18 13:25 11/11/18 13:25 11/11/18 13:25 11/11/18 13:25 11/11/18 13:25 - Notes Notes: PHYSICAL EXAMINATION: Reviewed vital signs and charting by RN GENERAL: Alert, interacts well. No acute distress. HEAD: Normocephalic, atraumatic. EYES: Pupils equal and round. Extraocular movements intact. ENT: Oral mucosa moist, tongue midline. NECK: Full range of motion. Supple. Trachea midline. LUNGS: Clear to auscultation bilaterally, no wheezes, rales, or rhonchi. No respiratory distress. HEART: Regular rate and rhythm. No murmur ABDOMEN: soft, left upper and lower quadrant tenderness to palpation. Non- distended. Bowel sounds present. no McBurney's point tenderness, no Camilo sign. EXTREMITIES: Moves all 4 extremities spontaneously. No edema, No cyanosis. Normal distal neurovascular exam BACK: No CVAT NEUROLOGIC: Oriented and appropriate. Normal speech. PSYCH: Normal affect, normal mood. SKIN: Warm, dry, normal turgor. No rashes or lesions noted. Course - Re-evaluation Re-evalutation: 11/11/18 18:34 Overall well-appearing. There is been a delay to get labs as patient is a very difficult stick. Unclear why she has persistent symptoms. 11/11/18 19:[address] tilley. Plan is to get an acute abdominal series and will do a rectal exam. If there is a stool burden in the rectal vault will give an enema in the setting of a normal x-ray. 11/11/18 19:48 Rectal exam done there was stool felt in the rectal vault but there is no compacted hard stool that could explain constipation. Acute abdominal series done showed no evidence of obstruction but did show a left stone that was seen on previous CT. She is comfortable in the room in no acute distress. Patient does not wish to undergo an enema at this time. She said Phenergan does not work for her so I will also also give her Zofran ODT. At this time patient is safe and stable for discharge as there is no surgical pathology or anything concerning in lab work that could keep her here. She is not actively vomiting or nauseated. She is not febrile. - Vital Signs Vital signs: Temp Pulse Resp BP Pulse Ox 98.0 F 84 16 151/79 H 100 11/11/18 16:45 11/11/18 16:45 11/11/18 16:45 11/11/18 16:45 11/11/18 16:45 - Laboratory Result Diagrams: 11/11/18 18:29 11/11/18 18:29 Laboratory results interpreted by me: 11/11/18 11/11/18 18:29 18:29 Seg Neutrophils % 78.5 H Chloride 110 H Carbon Dioxide 21 L Creatinine 1.55 H Est GFR ( Amer) 43 L Est GFR (Non-Af Amer) 36 L Glucose 215 H Total Protein 6.0 L Albumin 3.0 L Discharge - Discharge Clinical Impression: Constipation Qualifiers: Constipation type: unspecified constipation type Qualified Code(s): K59.00 - Constipation, unspecified Vomiting Qualifiers: Vomiting type: unspecified Vomiting Intractability: non-intractable Nausea presence: with nausea Qualified Code(s): R11.2 - Nausea with vomiting, unspecified Condition: Good Disposition: HOME, SELF-CARE Instructions: Abdominal Pain ([facility]), Antinausea Medication ([facility]), Constipation ([facility]), Vomiting ([facility]) Additional Instructions: You were seen in the emergency department this afternoon for nausea, vomiting and constipation. You are abdominal x-ray did not show any evidence of an obstruction but it did show a large stool burden. Hence this is why we gave you an enema. He should continue to take the MiraLAX and the Dulcolax as directed to promote stooling. If he develops severe, intractable abdominal pain, intractable vomiting after taking antinausea medication, high fevers, passout, or if any other concerns please believe to the emergency department. If you also begin to vomit either coffee grounds consistency or bright red blood please return to the emergency room. If you have a bowel movement and there is blood in it please return to the emergency department.
[2018-11-11 18:37] LABS: ABSOLUTE BASOPHILS # (AUTO) 0.1 10^3/uL (0.0-0.2); ABSOLUTE LYMPHOCYTES (AUTO) 1.4 10^3/uL (0.5-4.7); ABSOLUTE MONOCYTES (AUTO) 0.4 10^3/uL (0.1-1.4); ABSOLUTE NEUT (AUTO) 7.1 10^3/uL (1.7-8.2); BASOPHILS % (AUTO) 0.9 % (0-2); EOSINOPHILS % (AUTO) 0.5 % (0-6); HEMATOCRIT 36.6 % (36.0-47.0); HEMOGLOBIN 12.1 g/dL (12.0-15.5); LYMPHOCYTES % (AUTO) 15.9 % (13-45); MEAN CORPUSCULAR HEMOGLOBIN 27.3 pg (27.0-33.4); MEAN CORPUSCULAR HGB CONC 32.9 g/dL (32.0-36.0); MEAN CORPUSCULAR VOLUME 83 fl (80-97); MONOCYTES % (AUTO) 4.2 % (3-13); PLATELET COUNT 298 10^3/uL (150-450); RED BLOOD COUNT 4.41 10^6/uL (3.72-5.28); SEGMENTED NEUTROPHILS % (AUTO) 78.5 % (42-78); TOTAL CELLS COUNTED % (AUTO) 100 %
[2018-11-11 19:02] LABS: BLOOD UREA NITROGEN 18 mg/dL (7-20); CALCIUM 9.1 mg/dL (8.4-10.2); CARBON DIOXIDE 21 mmol/L (22-30); CHLORIDE 110 mmol/L (98-107); GLUCOSE 215 mg/dL (75-110); POTASSIUM 4.5 mmol/L (3.6-5.0); SODIUM 139.3 mmol/L (137-145)
[2018-11-11 19:03] LABS: ALANINE AMINOTRANSFERASE 18 U/L (9-52); ALKALINE PHOSPHATASE 78 U/L (38-126); ANION GAP 8 (5-19); ASPARTATE AMINO TRANSFERASE 16 U/L (14-36); BILIRUBIN,DIRECT 0.3 mg/dL (0.0-0.4); BILIRUBIN,TOTAL 0.4 mg/dL (0.2-1.3); LIPASE 68.3 U/L (23-300)
[2018-11-11 19:42] LABS: APPEARANCE,URINE CLEAR; BILIRUBIN,URINE NEGATIVE (NEGATIVE); COLOR,URINE YELLOW; GLUCOSE, URINE >=500 mg/dL (NEGATIVE); KETONES,URINE NEGATIVE (NEGATIVE); LEUKOCYTE ESTERASE,URINE TRACE (NEGATIVE); NITRITE,URINE NEGATIVE (NEGATIVE); PROTEIN,URINE >=500 mg/dL (NEGATIVE); URINE SPECIFIC GRAVITY 1.009; UROBILINOGEN,URINE NEGATIVE mg/dL (<2.0)
--- NOTE | 2018-11-11 19:49 | RADIOLOGY REPORT (SQ) ---
EXAM DESCRIPTION: ACUTE ABDOMEN SERIES COMPLETED DATE/TIME: 11/11/2018 7:40 pm REASON FOR STUDY: vomiting COMPARISON: None. NUMBER OF VIEWS: Three views. TECHNIQUE: Frontal chest, supine abdomen and upright/decubitus abdomen radiographic images acquired. LIMITATIONS: None. FINDINGS: CHEST: Lungs clear of infiltrates. FREE AIR: None. No abnormal gas collections. BOWEL GAS PATTERN: Nonobstructive pattern. No dilated loops or air fluid levels. CALCIFICATIONS: Peripheral nonobstructive nephrolithiasis on the left. HARDWARE: None in the abdomen. SOFT TISSUES: No gross mass or suggestion of organomegaly. BONES: No acute fracture. No worrisome bone lesions. OTHER: No other significant finding. IMPRESSION: NO RADIOGRAPHIC EVIDENCE FOR ACUTE ABDOMINAL DISEASE. Nonobstructive left nephrolithias is. TECHNICAL DOCUMENTATION: JOB ID: [id number] [employer]- All Rights Reserved Reading location - IP/workstation name: [email or web address]
[2018-11-11] MEDS ORDERED: ONDANSETRON ODT 4 MG TAB (6 TAB/ER DISP) PO PRN (19:51)
[2018-11-11 21:14] VITALS: BP 152/80
== END 2018-11-11 21:13 | disposition home or self-care (01) ==
LOC: ER 13:19
DX: R11.2 Nausea with vomiting, unspecified (principal); K59.00 Constipation, unspecified; R10.12 Left upper quadrant pain; R10.32 Left lower quadrant pain; E11.40 Type 2 diabetes mellitus with diabetic neuropathy, unspecified; I10 Essential (primary) hypertension; Z88.1 Allergy status to other antibiotic agents; Z91.048 Other nonmedicinal substance allergy status; Z88.5 Allergy status to narcotic agent; Z88.8 Allergy status to other drugs, medicaments and biological substances; Z88.0 Allergy status to penicillin; Z88.2 Allergy status to sulfonamides
CPT/HCPCS: 99284; 96361; 96374; 96375; 36415; 83690; 85025; 80053; 81001; 74022; J2550; J7120; S0028